=== PATIENT | female | born 1965 | race Caucasian/White ===

== ENCOUNTER 2023-12-14 23:52 | Inpatient (IN) | payer BC, SELFPAY ==
[2023-12-14 17:43] VITALS: BP 123/89
[2023-12-14 18:02] LABS: Urine Albumin Negative (Neg - Trace); Urine Bilirubin Negative (Negative); Urine Character Clear (Clear); Urine Color Yellow; Urine Glucose Negative (Negative); Urine Ketone Negative (Negative); Urine Leukocyte Negative (Negative); Urine Nitrite Negative (Negative); Urine Occult Blood Negative (Negative); Urine Urobilinogen Negative (Neg - 1+)
[2023-12-14 20:29] VITALS: BP 105/69
[2023-12-14 20:30] VITALS: BMI 27.9
--- NOTE | 2023-12-14 20:41 | ED.GENMED ---
History of Present Illness
<NARAYAN Danielson - Last Filed: 12/20/23 08:15>
General
Chief Complaint: Abnormal Lab Value
Source: patient and significant other
Exam Limitations: none
Time Seen by Provider: 12/14/23 20:38
Nursing documentation reviewed up to this point in time: agreed with
History of Present Illness
History of Present Illness:
Patient is a 58-year-old female presents to the ER for evaluation. Patient has a known history of minimally elevated LFTs though no diagnosis and also has had a history of intermittent nausea vomiting dry heaving without diagnosis after multiple GI
work she reports she had an episode of her typical nausea vomiting dry heaving on Tuesday 5 days ago however on Tuesday night 2 nights ago she was starting having auditory hallucinations. She describes hearing music playing in here in a hockey game
playing on TV. She continued to have intermittent auditory hallucinations but last night had visual hallucinations. She was in bed and ' saw a man standing there.' Her significant other was with her at that time. PT is aware that she is having
these . No prior psych history. she reports that she is chronically not a good sleeper and was prescribed Zoloft by her family doctor. In addition to the auditory /visual hallucinations patient also feels weak and unsteady and that her balance is
off.
She has had some burning with urination and did start herself on Bactrim.
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
Patient is a smoker. She drinks approximate 4times per week.
Review of Systems
<NARAYAN Danielson - Last Filed: 12/20/23 08:15>
Review of Systems
Allergies reviewed?: Yes
All Other Systems: ROS reviewed and negative except as documented in HPI and ROS
Constitutional: Reports no symptoms
EENT: Reports no symptoms
Respiratory: Reports no symptoms; Denies trouble breathing
Cardiac: Reports no symptoms
ABD/GI: Reports no symptoms; Denies abdominal pain, nausea, vomiting or diarrhea
: Reports no symptoms
Musculoskeletal: Reports no symptoms
Skin: Reports no symptoms; Denies rash
Neurological: Reports other (Balance feels off); Denies headache
Psychiatric: Reports hallucinations (Auditory and visual)
Phy Exam
<NARAYAN Danielson - Last Filed: 12/20/23 08:15>
General Physical Exam
General Presentation: no apparent distress
General age: appears stated age
General Skin: warm and dry
General Habitus: normal
General Mental: alert
General Hydration: appears well hydrated
Eye Exam
Eye Exam: PERRL, EOMI and other (No nystagmus bilaterally)
Eye Exam General: PERRL: bilateral and EOM intact: bilateral
Pupil Exam: Bilateral: round and reactive
Cardiovascular Exam
Cardiovascular Exam: regular rate/rhythm, no murmur and normal peripheral pulses
Pulmonary Exam
Pulmonary Exam: lungs clear and no respiratory distress
Neurological Exam
Neurological Exam: alert, oriented x3, no motor deficits, no sensory deficits and other (Ambulatory gait slightly off balance )
Philip Coma Scale
Eye Opening: Spontaneous
Verbal Response: Oriented
Motor Response: Obeys Commands
GCS Total Score: 15
Musculoskeletal Exam
Musculoskeletal Exam: full ROM
Skin Exam
Skin Exam: normal color and warm/dry
Psychiatric Exam
Psychiatric Exam: normal mood/affect
Course
<NARAYAN Danielson - Last Filed: 12/20/23 08:15>
Orders/Labs/Results
Orders:
Orders
12/14/23 17:54
Fentanyl, Urine Urgent
Urine Culture Reflexed from UA [Urinalysis Reflex To Culture] Urgent
Date Specimen was Collected: 12/14/23
Time Specimen was Collected: 17:49
Urine Drug Abuse Screen Urgent
Date Specimen was Collected: 12/14/23
Time Specimen was Collected: 17:49
12/14/23 18:11
CT Head W/o Iv Contrast Urgent
Comment:
Reason For Exam: confusion
12/14/23 21:06
Electrocardiogram (*1) Stat
Reason for Study: Abdominal Pain
Cardiac Monitoring- Treatment ONCE
EKG- Treatment ONCE
IV Insert/Care/Rem.- Treatment PRN
0.9% Sodium Chloride 1000 ml [Nss] 1,000 ml IV BOLUS
12/14/23 21:31
Lyme Progressive Urgent
12/14/23 23:00
Flush (0.9% Sodium Chloride) [Flush (Nss)] See Dose Instructions IV PER PROTOCOL
12/14/23 23:15
COVID-19 Antigen Urgent
Source: Nasal Swab
Abnormal Lab Results
12/14/23
17:54
U Benzodiazepines Scrn Positive H
(Negative)
Vital Signs
Initial and Last Documented VS:
Initial Vital Signs
Temp Pulse Resp BP Pulse Ox
98.3 F 92 20 123/89 99
12/14/23 17:43 12/14/23 17:43 12/14/23 17:43 12/14/23 17:43 12/14/23 17:43
Last Documented Vital Signs
Temp Pulse Resp BP Pulse Ox
98.1 F 61 16 119/73 98
12/17/23 15:49 12/17/23 15:49 12/17/23 15:49 12/17/23 15:49 12/17/23 15:49
Supervisor Accounting Clerks consulted with Physician
Supervisor Accounting Clerks consulted with physician?: Yes
Name of Physician Consulted: Matilda
<Tracie Grey MD - Last Filed: 12/14/23 22:01>
Orders/Labs/Results
Orders:
Orders
12/14/23 17:54
Fentanyl, Urine Urgent
Urine Culture Reflexed from UA [Urinalysis Reflex To Culture] Urgent
Date Specimen was Collected: 12/14/23
Time Specimen was Collected: 17:49
Urine Drug Abuse Screen Urgent
Date Specimen was Collected: 12/14/23
Time Specimen was Collected: 17:49
12/14/23 18:11
CT Head W/o Iv Contrast Urgent
Comment:
Reason For Exam: confusion
12/14/23 21:06
Electrocardiogram (*1) Stat
Reason for Study: Abdominal Pain
Cardiac Monitoring- Treatment ONCE
EKG- Treatment ONCE
IV Insert/Care/Rem.- Treatment PRN
0.9% Sodium Chloride 1000 ml [Nss] 1,000 ml IV BOLUS
12/14/23 21:31
Lyme Progressive Urgent
12/14/23 23:00
Flush (0.9% Sodium Chloride) [Flush (Nss)] See Dose Instructions IV PER PROTOCOL
12/14/23 23:15
COVID-19 Antigen Urgent
Source: Nasal Swab
Abnormal Lab Results
12/14/23
17:54
U Benzodiazepines Scrn Positive H
(Negative)
Vital Signs
Initial and Last Documented VS:
Initial Vital Signs
Temp Pulse Resp BP Pulse Ox
98.3 F 92 20 123/89 99
12/14/23 17:43 12/14/23 17:43 12/14/23 17:43 12/14/23 17:43 12/14/23 17:43
Last Documented Vital Signs
Temp Pulse Resp BP Pulse Ox
98.1 F 61 16 119/73 98
12/17/23 15:49 12/17/23 15:49 12/17/23 15:49 12/17/23 15:49 12/17/23 15:49
<NARAYAN Danielson - Last Filed: 12/20/23 08:15>
MDM/Problems Addressed
MDM/Problems Addressed:
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 She started initially with nausea vomiting over the weekend but this is not new for her she has
off-and-on episodes of this. She started with visual and hallucinations several nights ago. Since then she has had intermittent hallucinations. She is aware these are happening. In addition she is having balance issues no headache no fever no
rash. She does admit to hitting her head November 16 she is on a blood thinners. She does admit to drinking 3 times per week and has chronic elevation LFTs no diagnosis of hepatitis cirrhosis. No psych history. She had outpatient labs and a CAT scan
and was sent here to the ER. CAT scan does show small focus of increased density of the left basal ganglia possible early physiologic basal ganglia calcification possible unusual vascular malformation
On exam she is awake alert no acute distress afebrile no meningismus. Her labs were reviewed from earlier today as an outpatient white count normal LFTs elevated bun 22 creat 1.5.
Case discussed ED physician I did notify neurology neurosurgery and hospitalist possible encephalitis will require lumbar puncture and admission Lyme testing ordered .
2975:
Lumbar puncture was attempted by ED physician however unsuccessful after several times. Doxycycline considered however admitting hospitalist made aware that lumbar puncture was unsuccessful he will check with ID to see what they suggest.
Pt adm to hosp service.
Neurology as well as neurosurgery( for ct head results )
<NARAYAN Danielson - Last Filed: 12/20/23 08:15>
*Radiology
Radiology exam reviewed: radiology read reviewed (CAT scan from outpatient reviewed today)
*Pulse Oximetry
Patient hypoxic: no
*Critical Care Note
Total Time (30-74mins, 75-104mins- exclusive of procedures): Not Applicable
<NARAYAN Danielson - Last Filed: 12/20/23 08:15>
Patient Management
Discussion with other providers: Commercial Plumber (Neurology as well as neurosurgery made aware)
ED Attending Note
<NARAYAN Danielson - Last Filed: 12/20/23 08:15>
-
Portions of this chart may have been created with voice recognition software.� Occasional wrong word or��sound alike� substitutions may have occurred due to the inherent limitations of voice recognition software.
<Tracie Grey MD - Last Filed: 12/14/23 22:01>
ED Attending Note
Patient seen and examined by attending physician: Yes
I performed the substantive portion of visit, reviewed & personally made and approve the management plan that is documented in note by myself or MARIE.: Yes
ED Attending Note:
Patient appears nontoxic but slightly flushed. She has no meningismus on exam. Patient vividly describes visual hallucinations of animals turning into people. Patient also states she is hearing music that other people do not hear. She reports
these hallucinations are completely new to her. She also complains of feeling hot and then cold. Her lungs sound clear. Her abdomen is soft and nontender. I feel that we should proceed with a lumbar puncture, which patient is agreeable to, to
assess her for an encephalitis or meningitis.
Discharge Plan
Departure
Patient Disposition: Admit
Date of Disposition: 12/14/23
Time of Disposition: 23:15
Admit to: Med/Surg
Admit to doctor: rona
Presentation/result/management discussed w/ accepting MD/DO: Hospitalist
Patient with high blood pressure during this ER visit?: No
Condition: Fair
Covid-19: Not Applicable
Discharge Problem:
Acute encephalitis
Interventions
Interventions:
*Risk Screen - Suicide Last Done: 12/14/23 17:43
*General Assessment Last Done: 12/14/23 17:43
*Neglect/Abuse Screening Last Done: 12/14/23 17:43
ED- Fall Risk Assessment Last Done: 12/15/23 07:28
*ED COVID-19 Vaccine History Last Done: 12/15/23 16:23
*Nursing Disposition Last Done: 12/15/23 18:00
Discharge Date and Time
Discharge Date/Time: 12/15/23 18:02
[2023-12-14] MEDS: NSS 1000 IV (21:32)
[2023-12-14 22:10] VITALS: BP 110/82
[2023-12-14 23:33] LABS: COVID-19 Antigen Negative (Negative)
--- NOTE | 2023-12-14 23:58 | HPS.HSE ---
Family Physician
-
Family Physician: CAROLINA Finch
Chief Complaint
-
Hallucinations
History of Present Illness
Patient is a 58y F with PMH significant for hypertension and GERD who presents to ED complaining of hallucinations x 5 days. Patient states that she initially noted auditory hallucinations 5 days ago. This consisted of hearing music play or
hearing TV on. Patient went through her entire house but could find no source of the sound. This has persisted intermittently since that time. She states that she can recognize the songs that are playing and that she has heard hockey broadcasts
and other specific TV programming. In addition, patient describes multiple episodes of visual hallucinations. She has seen animals and people that are not present. She woke Tuesday evening and saw an old man standing at the foot of her bed. He
floated into the air and then disappeared. She describes seeing a dog that turned into a soldier and then disappeared.
In addition to her hallucinations, patient describes N/V symptoms that have been present for several days. She notes inability to tolerate all but very small amounts of PO intake. She describes violent bouts of retching including flushed
sensation, sweating and dizzy feeling that is alleviated after emesis.
Patient states that she feels unsteady on her feet. She has mild headache.
Patient notes that she suffered a significant fall on 11/17/23 with head injury - striking her forehead on the ground. She did not seek medical attention at that time.
She developed bilateral 'black eyes' after that injury. These symptoms have since fully resolved. She is not on anticoagulants. She does take Estelle Back and Body daily for aches and pains.
Patient states that her newest medication is sertraline - which she was placed on about 2 months ago for hot flashes / menopausal symptoms. She states that her symptoms did seem to improve with this medication.
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 She denies any recent / evident skin lesions, bites or embedded ticks.
In the ED, patient is resting comfortably. She is calm and collected and attentive. She is able to provide clear history of recent events including detailed descriptions of her various symptoms and hallucinations.
Medical History
Past Medical History
Past Medical History: Reports Other
Additional Past Medical History:
Hypertension
GERD / PUD
Endometriosis
Past Surgical History: Reports Other
Additional Past Surgical History:
Laparoscopy x 3
Tubal Ligation
Social History
Tobacco: Smoker (Current every day smoker. 05/17 ppd. Approx 30 total pack years.)
Alcohol: Daily (Patient reports approximately 3 drinks daily on average.)
Family History
Family History: Other (Mother: CAD, DM, Lupus, CHF)
Allergies / Home Medications
Allergies reflects when Allergies were last updated in [employer].
Home Medications with original date entered in [employer]
Allergy/Medication List:
Allergies
Allergy/AdvReac Type Severity Reaction Status Date / Time
No Known Allergies Allergy Unverified 12/14/23 17:43
Home Medications
aspirin-caffeine 500 mg-32.5 mg tablet (Estelle Back and Body) 1 tab PO DAILYPRN PRN back pain 12/14/23
ibuprofen 200 mg tablet 400 mg PO Q6HPRN PRN mild pain 12/14/23
lisinopril 20 mg-hydrochlorothiazide 12.5 mg tablet 1 tab PO DAILY 12/14/23
omeprazole 20 mg capsule,delayed release 20 mg PO DAILY 12/14/23
sertraline 50 mg tablet 50 mg PO HS 12/14/23
Review of Systems
-
History Source: Patient
A 12 point ROS was completed and negative except as noted: Yes
Constitutional: Reports Fatigue and Other (Sweats / Flushed); Denies Fever or Chills
EENT: Denies Sore Throat or Runny Nose
Respiratory: Denies Cough or Trouble Breathing
Cardiac: Reports Diaphoresis; Denies Chest Pain or Palpitations
Abdomen/GI: Reports Nausea, Vomiting, Diarrhea and Anorexia; Denies Abdominal Pain, Constipated, Bloody Stools or Black Stools
: Denies Dysuria, Frequency or Flank Pain
Musculoskeletal: Denies Joint Pain or Edema
Neurological: Reports Dizzy and Headache; Denies Weakness or Numbness
Psych: Reports Audio or Visual Hallucinations; Denies Depression or Anxiety
Physical Exam
Vital Signs
Vital Signs
Temp Pulse Resp BP Pulse Ox
98.3 F 69 14 110/82 97
12/14/23 17:43 12/14/23 22:15 12/14/23 22:15 12/14/23 22:10 12/14/23 21:15
Physical Exam
General: Other (58y F in no acute distress. Awake alert and conversant / attentive. Mildly flushed appearance)
HEENT: Moist mucous membranes and PERRLA
Respiratory: Clear; No Wheezes, Rales or Rhonchi
Cardiac: S1/S2 and Regular Rhythm; No Murmur
GI: Soft, Non Tender, Non Distended and Normal Bowel Sounds
Musculoskeletal: No Clubbing, No Cyanosis and No Edema
Skin: No Rash or Lesions
Neuro: AO x 3 and Other (Slightly slow and unsetady [id number] testing. Strength is intact and symmetric. Unsteady on feet / pos Romberg.)
Impression/Plan
-
A/P: Patient is a 58y F with PMH significant for hypertension and GERD who presents to ED complaining of 5 days of N/V, dizziness and hallucinations.
Audio / Visual Hallucinations
Ataxia
- Admit for further evaluation and treatment.
- Etiology remains unclear.
- ? atypical infection / encephalitis / etc.
- ? related to recent trauma / injury - though this was [address] is essentially unremarkable.
- ? related to chronic alcohol use disorder (see below).
- LP attempted in ED without success - will consult IR for LP in the AM for evaluation.
- Hold on any empiric treatment pending results of LP.
- Patient is afebrile, non-toxic appearing, etc.
- Follow for any new / worsening symptoms.
- Consults placed for Neurology and ID for additional recommendations.
- Check MRI in the AM for further evaluation.
- PT / OT evaluations.
Benign Hypertension
Renal Insufficiency
- SCr = 1.5 with no prior for comparison.
- ? RACHEL v CKD.
- Follow SCr over the next 48 hours to establish baseline.
- BP is well-controlled in the ED. Will hold lisinopril/HCT for now.
- Monitor BP and resume meds if needed.
GERD / PUD
N/V
- Patient denies any intake of deli meats, etc.
- No emesis here in the ED.
- Continue daily PPI.
- IVF support.
- Follow for any symptoms and consider GI evaluation if needed.
Hot Flashes
- Started on sertraline about 2 months ago for hot flashes.
- Given that this is her newest medication - will hold for now.
Alcohol Use Disorder
- Patient admits to at least 3 drinks daily of beer, malt liquor, hard liquor.
- Has had poor PO intake past several days (including decreased EtOH) due to GI symptoms as noted above.
- ? alcohol withdrawal syndrome though patient does not appear at all agitated and is not encephalopathic.
- Thiamine, folate, MVI replacement.
- Monitor for withdrawal symptoms and treat with BZDs if needed.
DVT Prophylaxis: SCDs
Code Status: Full
[2023-12-15] VITALS (15 sets, daily range): BP systolic 64–145; BP diastolic 57–105; PULSE 64–84; BMI 26.6
[2023-12-15] MEDS: NSS 1000 IV ×3 (01:07→18:38)
[2023-12-15 02:03] LABS: Amphetamines Negative (Negative); Barbiturates Negative (Negative); Benzodiazepines Positive (Negative); Buprenorphine Negative (Negative); Cocaine Negative (Negative); Marijuana Negative (Negative); Methadone Negative (Negative); Methamphetamines Negative (Negative); Opiates Negative (Negative); Phencyclidine Negative (Negative); Tricyclic Antidepressants Negative (Negative)
[2023-12-15 02:12] LABS: Fentanyl, Urine Negative (Negative)
[2023-12-15 06:11] LABS: Hematocrit 34.4 % (37.0-47.0); Hemoglobin 12.6 g/dL (12.0-16.0); Mean Corp Hgb Conc. 36.6 g/dL (33.0-37.0); Mean Corpuscular Hgb 36.8 pg (27.0-31.0); Mean Corpuscular Volume 100.6 fL (81.0-99.0); Mean Platelet Volume 9.5 fL (7.4-10.4); Platelet Count 179 10^3/uL (130-400); Red Blood Cell Count 3.42 10^6/uL (4.20-5.40); Red Cell Dist. Width 13.6 % (11.5-14.5); White Blood Cell Count 5.2 10^3/uL (4.8-10.8)
[2023-12-15 06:46] LABS: ALT (SGPT) 97 U/L (0-35); AST (SGOT) 131 U/L (14-36); Albumin 4.3 g/dl (3.5-5.0); Alkaline Phosphatase 93 U/L (38-126); Blood Urea Nitrogen 20 mg/dl (7-17); Calcium 9.4 mg/dl (8.4-10.2); Carbon Dioxide 22 mmol/L (22-30); Chloride 105 mmol/L (98-107); Direct Bilirubin 0.2 mg/dl (0.0-0.4); Estimated Creatinine Clearance 51 ml/min; Glucose 97 mg/dl (70-99); Potassium 3.2 mmol/L (3.5-5.1); Sodium 135 mmol/L (135-145); Total Bilirubin 0.9 mg/dl (0.2-1.3); Total Protein 6.5 g/dl (6.3-8.2); eGFR 58.61
[2023-12-15 07:15] LABS: TSH Reflex To Free T4 1.12 uIU/ml (0.47-4.68)
--- NOTE | 2023-12-15 07:20 | EDRN ---
IR called this RN and updated regarding the pt, they will take the pt at some point later today
--- NOTE | 2023-12-15 07:31 | EDRN ---
the pt was received from previous cage shift manager RN, the pt is resting in stretcher in the lowest position, side rails up x2, call quach within reach, HOB elevated, no s/s of distress, VS WNL, no c/o pain, the pt has no s/s of confusion currently
however it was reported that the pt has intermittent periods of confusion, labs sent as ordered, awaiting for the pt to go to IR, will continue to monitor the pt closely
[2023-12-15 07:48] LABS: INR 1.05; PT 13.7 Sec (11.4-14.6)
[2023-12-15] MEDS: PROTONIX 40 MG PO (07:52)
[2023-12-15] MEDS: FOLVITE 1 MG PO (07:52)
[2023-12-15] MEDS: THIAMINE INJECTION 200 MG IV (07:52)
[2023-12-15 07:57] LABS: Potassium 3.2 mmol/L (3.5-5.1)
--- NOTE | 2023-12-15 09:11 | W.PN.HOSP.TC ---
Today's Communication/Plan
-
MRI of the brain. LP
Assessment / Plan
Assessment / Plan
Physical exam:
General: Well Developed, Well Nourished and No Apparent Distress
HEENT: Normocephalic, Atraumatic and Moist Mucous Membranes
Respiratory: Clear to Auscultation; Negative Wheezes, Rales or Rhonchi
Cardiac: Regular Rhythm and S1/S2
GI: Soft, Nontender and Nondistended
Musculoskeletal: No Clubbing, No Cyanosis and No Edema
Neuro: Awake, Alert and Oriented
Psych: Calm
A/P:
A/P: Patient is a 58y F with PMH significant for hypertension and GERD who presents to ED complaining of 5 days of N/V, dizziness and hallucinations.
Audio / Visual Hallucinations
Ataxia
Etiology could be medication related or psych. Does not look infectious although reasonable to rule out concerning etiologies.
MRI of the brain done
Plan for LP
Discussed with daughter at bedside
RACHEL
Creatinine 1.5--> 1.1 with hydration
Monitor renal function avoid nephrotoxic
Hypokalemia
Replete and trend
Benign Hypertension
- BP is well-controlled in the ED. Will hold lisinopril/HCT for now.
- Monitor BP and resume meds if needed.
GERD / PUD
N/V
- Patient denies any intake of deli meats, etc.
- No emesis here in the ED.
- Continue daily PPI.
- IVF support.
- Follow for any symptoms and consider GI evaluation if needed.
Hot Flashes
- Started on sertraline about 2 months ago for hot flashes.
- Given that this is her newest medication - will hold for now.
Alcohol Use Disorder
- Patient admits to at least 3 drinks daily of beer, malt liquor, hard liquor.
- Has had poor PO intake past several days (including decreased EtOH) due to GI symptoms as noted above.
- ? alcohol withdrawal syndrome though patient does not appear at all agitated and is not encephalopathic.
- Thiamine, folate, MVI replacement.
- Monitor for withdrawal symptoms and treat with BZDs if needed.
DVT Prophylaxis: SCDs
Code Status: Full
Anticipated Discharge: 24 - 48 hours
Subjective/Interval History
-
Date of Service: December 15, 2023
Patient denies any headache or neck pain. Afebrile.
Objective Data
-
Labs:
Laboratory Results
12/15/23 12/15/23
05:30 07:27
WBC 5.2
Hgb 12.6
Hct 34.4 L
Plt Count 179
PT 13.7
INR 1.05
Sodium 135
Potassium 3.2 L D 3.2 L
Chloride 105
Carbon Dioxide 22
BUN 20 H
Creatinine 1.1 H
Glucose 97
Calcium 9.4
Total Bilirubin 0.9
AST 131 H
ALT 97 H
Alkaline Phosphatase 93
Vital Signs:
Vital Signs
Temp Pulse Resp BP Pulse Ox
98.5 F 60 12 123/74 97
12/15/23 07:28 12/15/23 07:30 12/15/23 07:30 12/15/23 07:28 12/15/23 07:30
[2023-12-15] MEDS: KCL 40 MEQ PO (10:47)
--- NOTE | 2023-12-15 13:36 | CON.NEURO4 ---
Addendum entered and electronically signed by Brooks Suarez MD 12/15/23 14:30:
Please disregard the following in this note as it was meant for another note
'Physical Exam:
1. Continue with current anticoagulation currently he is on heparin infusion and I have no objections to moving him towards apixaban when felt appropriate
2. Reassured family and the patient about the finding on the CT head noncontrast
3. Further care for the recently diagnosis of Alzheimer's dementia in the outpatient setting not going to recommend any memory aid medications to start at this time'
Original Note:
Consultation - Neurology 4
-
CONSULTING PHYSICIAN: Vini Suarez
REFERRING PHYSICIAN: Hospitalist
DICTATED BY: Vini Suarez
DATE/TIME OF REQUEST: 12/15/23
DATE/TIME OF CONSULTATION: 12/15/23
Reason for Consultation: Hallucinations
History of Present Illness:
The patient is a 58-year-old woman with a past medical history of GERD, hypertension, tobacco use, endometriosis presented to hospital because of auditory and visual hallucinations going on for about the past 4 to 5 days.
Patient has described hearing sounds that were clearly not there she could find no source of the sound in her house, sounded like music. She had also seen formed visual hallucinations like animals and people that were not disturbing and seem to be
somewhat short lasting and disappearing. Has not had anything like hallucinations in the past.
Patient has not been sleeping well for a very long time she had been taking some xupt-tdr-gdhkufi sleep aids like NyQuil but had not been taking this for about the past 4 to 5 days. Reports not sleeping much at all only a couple of hours in the
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
No unusual headaches or fevers or chills bug bites or rashes.
Does report that she has had longstanding GI illnesses with some tendency towards vomiting and diarrhea for a long time and has had upper endoscopy and colonoscopy for this with no obvious diagnoses. Has not been eating much lately.
Denies any recreational drug use and alcohol use is around 3 to 4 days a week she has around 2-3 white claw drinks.
No abnormal movements seen. Patient does have insight into her hallucinations.
For menopausal symptoms and some depression patient had been started on sertraline around 2 months ago she did not notice any obvious side effects since starting it. She relates that at a much younger age and her childhood teenager years she had
significant depression and a suicide attempt and had been treated with a number of psychiatric medications at that time. She denies any instances of hyperactive behavior not sleeping and having extreme activity and symptoms of cee in the past.
Her does feel like she seems a little bit more hyperactive in her movements and speech.
Past Medical History: Depression, hypertension, GERD, unspecific salvage determiner GI symptoms, endometriosis
Surgical History: Laparoscopy, C section, tubal ligation
Family History: No family history neurologic disorders or bipolar disorder, son with some ADHD and bipolar disorder
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
4 days per week denies any history of withdrawal or functional problems with alcohol
Review of Symptoms:
Patient denies any fever, headache, chest pain, shortness of breath, GI or symptoms.
Physical Exam:
1. Continue with current anticoagulation currently he is on heparin infusion and I have no objections to moving him towards apixaban when felt appropriate
2. Reassured family and the patient about the finding on the CT head noncontrast
3. Further care for the recently diagnosis of Alzheimer's dementia in the outpatient setting not going to recommend any memory aid medications to start at this time
Neurologic Examination:
Patient wide awake and alert, able to give very clear and detailed explanation and conversation about her presenting symptoms as well as her medical history demonstrating very good insight there is no evidence of aphasia her mood is neutral to
positive, no evidence of significant inattention and obeys complex multistep commands with no evidence of neglect. On cranial nerve assessment, pupils are 3 mm bilateral, round and reactive to light and accommodation. Visual swartz are full.
Extraocular movements are intact. Facial sensations are intact and bilaterally symmetrical, there is no facial asymmetry. Hearing is intact bilaterally to normal conversation volume. Tongue palate and uvula are midline. Sternocleidomastoid
strengths are full bilaterally. Motor strengths are 5/5 bilateral upper and lower extremities on medical research [place] scale. There is no drift or involuntary movement noted. Deep tendon reflexes are 2+ bilateral upper and lower extremities and
Babinski is absent bilaterally. Normal tone no rigidity or spasticity. No pathologic hyperreflexia, no clonus. Normal light touch. There was no extinction noted on double simultaneous stimulation. Coordination is intact by finger to nose
bilaterally.
Neuro Imaging: MRi brain with and without contrast no findings of infarct, edema, neoplasm, no findings supportive of encephalitis
Impressions
Rather interesting case, patient with quite intact insight but having visual and auditory hallucinations and does not seem to be psychotic at all. She has had significant sleep deprivation along with some uses ohgo-lzv-havyafj sleep medications
that could be playing a role and seems to be working almost to the point of exhaustion recently. Seems to have had some longstanding GI illnesses that would raise the possibility of some degree of vitamin deficiency but she does not have any of the
classic signs of Wernicke's encephalopathy. No strong suggestion on vital signs lab work or history of a meningitis but encephalitis would be in the differential. Seems a bit hyperactive but not clear that she has hypomania or not, seems unlikely
but there is the possibility that the starting of sertraline 2 months ago could have thrown her into a mild hypomanic state.
Recommendations:
1. Check Vitamin B12, Ammonia, antibodies for Vi encephalopathy
2. Check lumbar puncture
3. Change Thiamine to high dose 500 mg q8hr IV for [address] on Gabapentin 400 mg qhs for adequate sleep
5. Psychiatry consultation for input on if is felt an aspect of hypomania here and any changes to Sertraline
Discussed patient care with: Patient and her family
--- NOTE | 2023-12-15 14:24 | CON.MD ---
Consultation - Medical
-
patient seen chart reviewed. spoke with nursing. family at bedside. the patient is a 58 year old woman who comes to w c.o auditory and visual hallucinations . about two months ago she was started on zoloft by pcp increased to 50 mg daily for
some anxiety and dysphoria. she was having night sweats too but she has had them for years menopause is long past as periods stopped at age 46. she noted gradually that she could not sleep. at this point not sleeping at all. her appetite has been
down for the past several days. her thoughts are racing. she felt nauseated on and rx started for uti (bactrim). on tuesday started experiencing visual and auditory hallucinations. family notes her normally quiet retiring personality has
morphed into a very talkative person with pressured speech increased energy and much decreased need for sleep. she is not suicidal. the hallucinations are NOT command type. she hears radio announcers tv shows etc. she does see people who are not
there and things which are not there....eg a fly . she told me she drinks six beers weekly but to others here she suggested more etoh use on the order of three drinks daily and notably lft's are increased and rbc's show macrocytosis
past psych hx as a teen hx of cutting herself she did not say tried to kill herself but rather cut herself. she was hosp 'thirty days' at [place]. she took antidepressants and notably at some point prescribed zyprexa thorazine haldol at some
point. no psych meds for some years.
medical hx patient w hx gi symptoms has had colonoscopy and endoscopy without dx. gerd fibromyalgia rx w lyrica at some point. bun 20 cr 1.1 K 3.2 hgb 12.6 transaminitis mri and cat no acute findings ecg nl qtc bradycardia bp nl she
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
fh mother w depression fh etoh
social hx resides w second and one d. has t hree kids by first marriage eleven grands all together. 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 patient was stressed by work in recent weeks.
[place] born and raised.
mse alert ox3 cooperative and pleasant. speech pressured and a bit loud. thought process generally goal oriented mood is a bit expansive affect labile auditory and visual hallucinations no si no hi aver intelligence insight judg okay
dx ?? cee induced by zoloft in a patient with hx of some psych illness r/o etoh use disorder which could contribute to mood instability r/o other medical as per dr leach
plan neuro workup as per dr leach. my suspicion is that this is secondary to zoloft which should be dc'ed. . this type of rxn can occur with or without bipolar underlying. need to monitor for etoh wd check folic acid would give her a dose of
seroquel now 25 mg and 50 mg q hs . sleep may help with resumption of normal mood. psych will follow
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
--- NOTE | 2023-12-15 15:30 | W.PN.UPDATE ---
Update Note
Progress Note Update
- LP complete. Mildly bloody tap. Level L4/5.
- Pt tolerated well.
[2023-12-15 16:01] LABS: Lyme Antibody Screen, EIA Negative (Negative)
[2023-12-15 16:40] LABS: CSF Clarity Turbid; CSF Color Red; CSF Tube # 1; Red Cell Count/CSF 7000 mm^3
--- NOTE | 2023-12-15 16:55 | CON.ID ---
Consultation
-
Date/Time Consultation Requested: 12/15/2023 01:01
Date/Time Consultation Performed: 12/14/2042 1640
Requesting Provider: Dr. Cole
Performing Provider: Dr. Summers
Reason for Consultation: Hallucinations
Chief Complaint / Past History
History of Present Illness
Corrie Hill is a 58-year-old female being evaluated at the request of Dr. Cole regarding hallucinations. History is obtained from chart review, along with patient interview.
The patient reports that she has had several months of intermittent dry heaves, with the last bowel last week which persisted for approximately 3 days. Right approximately 5 days ago she began to have reported auditory hallucinations, hearing
people talk when they were not there. A day or so later she then proceeded to develop some visual hallucinations, seeing flies and other bugs when none were present. She ultimately was brought to the hospital for further evaluation.. She also
noted to the ER that she was feeling weak and somewhat unsteady and that her balance is off.
She reports that since admission the visualizations have eased off, but she does report seeing floating in the room which was not there today. She is currently status post lumbar puncture.
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 She notes no prior occurrences of similar symptomatology.
Past History
Additional Past Medical History:
HTN
GERD
Endometriosis
Additional Past Surgical History:
Patient
Allergy History:
No Known Allergies Allergy (Unverified 12/14/23 17:43)
Medications Reviewed: Yes
Current Antibiotics:
none
Social History
Tobacco: Smoker (1/2 ppd)
Alcohol: Occasional
Drug: None
Employment: Employed
Family History
Family History: Not Pertinent
Review of Systems
Vital Signs
Temp Pulse Resp BP Pulse Ox
98.3 F 58 16 121/65 98
12/15/23 14:33 12/15/23 15:28 12/15/23 15:28 12/15/23 15:28 12/15/23 14:33
Physical Exam
Physical Exam
Constitutional: No Acute Distress, Comfortable and Non-toxic
Head: Normocephalic
Eyes: No Conjunctival Hemorrhage and Sclera Anicteric
Oral: No Thrush and No Ulcers
Cardiovascular: Regular Rate and S1/S2; Negative S3/S4 or Murmur
Pulmonary: Clear; Negative Wheezes, Rales or Rhonchi
Gastrointestinal: Soft, Non Tender, Non Distended, Normal Bowel Sounds, No Rebound and No Guarding
Extremities: Negative Edema, Cyanosis or Erythema
Neurological: Awake, Alert and Oriented; Negative Meningeal Signs
Psychological: Calm
Lab / Diagnostic Study Results
12/15/23 05:30
12/15/23 07:27
PT 13.7 Sec (11.4-14.6) 12/15/23 07:27
INR 1.05 12/15/23 07:27
Microbiology Results
Micro:
12/15/23 15:15 Fungal Culture - Preliminary
Csf Culture in progress.
Positive cultures are reported as soon as detected.
Final report to follow in four to five weeks.
12/15/23 15:15 CSF Culture - Pending
Csf Gram Stain - Final
12/15/23 15:15 Meningitis/Encephalitis Panel (PCR) - Pending
Csf
Imaging:
12/15/2023 MRI brain: No abnormal parenchymal signal intensity is identified. The ventricles and sulci are normal in size and configuration. Mild relatively symmetric susceptibility in the bilateral basal ganglia most compatible with mineralization
in correlation with the prior CT. No mass effect, midline shift, or extra axial collection. No abnormal parenchymal or meningeal enhancement. No abnormal signal intensity on diffusion-weighted images.
Assessment / Plan
Reported hallucinations; improved
Generalized weakness
HTN
GERD
Endometriosis
Recommendations:
At this time, clinical presentation is not consistent with encephalitis or meningitis.
Will await further results from LP, but no indication at present to initiate antibiotic therapy.
Continue with supportive care. Patient currently followed also by neurology and psychiatry
[2023-12-15] MEDS: THIAMINE INJECTION 255 MG IV ×2 (16:57→23:05)
[2023-12-15 17:00] LABS: Spinal Fluid Granulocytes 51 %
[2023-12-15 17:01] LABS: CSF Tube # 4; Spinal Fluid Lymphocytes 40 %; Spinal Fluid Macrophages 9 %; White Cell Count/CSF 8 mm^3 (0-5)
[2023-12-15] MEDS: SEROQUEL 25 MG PO (17:01)
[2023-12-15 17:02] LABS: CSF Tube # Clarity Hazy; White Blood Cell Count/CSF 2 mm^3 (0-5)
[2023-12-15 17:27] LABS: Folate 4.5 ng/ml (2.76-20); Vitamin B12 454 pg/ml (239-931)
[2023-12-15 17:34] LABS: CSF Color Other; Red Cell Count/CSF 2000 mm^3
--- NOTE | 2023-12-15 18:00 | PTCARENOTE ---
12/14- Patient transferred and oriented to unit without issue. AAOX3, pleasantly hyperactive but redirectable, cooperative. Skin CDI. Telemetry #21, currently Sinus Tachycardia with PB=[id number]. Patient denies any current needs or requests.
[2023-12-15 18:03] LABS: Spinal Fluid Glucose 63 mg/dl (40-70); Spinal Fluid Protein 72 mg/dl (12-60)
[2023-12-15] MEDS: SEROQUEL 50 MG PO (21:52)
[2023-12-16] MEDS: NSS 1000 IV (02:40)
[2023-12-16 03:20] VITALS: BP 126/72
[2023-12-16 07:00] VITALS: BP 162/70
[2023-12-16] MEDS: PROTONIX 40 MG PO (08:05)
[2023-12-16] MEDS: FOLVITE 1 MG PO (08:05)
[2023-12-16] MEDS: THIAMINE INJECTION 255 MG IV ×3 (08:05→23:28)
--- NOTE | 2023-12-16 08:21 | W.PN.NEURO.1 ---
Addendum entered and electronically signed by Brooks Suarez MD 12/16/23 11:39:
I saw and evaluated the patient agree with the findings with following comments:
58 year old woman with mood disorder, hypertension, GERD, tobacco use presenting with auditory and visual hallucinations, mild hypomania, started Sertraline 2 months ago for depression and menopausal symptoms. 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 Not sleeping much for past several days and taking some over the counter medicines like Nyquil for sleep.
Neurologic examination unchanged: Has brief visual hallucinations, good insight, calm and cooperative, able to have clear full conversation, no aphasia, cranial nerves and motor function unremarkable.
CSF no significant abnormalities
MRI brain with and without contrast no significant abnormalities
Assessment: Suspicion is greatest for Sertraline inducing cee in a patient with previous mood disorder. Testing here not supportive of encephalitis or meningitis. Not showing vital signs or clinical signs on exam of drug or alcohol withdrawal
but does have frequent alcohol use should be kept in mind.
Recommendations
-Daily multivitamin
-Don't pursue Gabapentin rather agree with use of Seroquel
-Labwork checked for other contributory causes
-Anticipate will need seroquel moving forward
-Can switch to PO thiamine on discharge would continue on IV thiamine until discharge
Original Note:
Today's Communication / Plan
-
.
Neuro Assessment/Plan
Assessment
This is a 58-year-old female with a PMH of HTN, GERD, endometriosis, and tobacco use who presented to on 12/15/23 with report of auditory and visual hallucinations starting about 5 days prior to arrival. She also endorses recent poor sleep,
productive cough requiring NyQuil/DayQuil, nausea/vomiting/poor oral intake, and newly starting sertraline 50mg about 2 months ago.
-MRI Brain 12/15/23: No acute intracranial abnormality within the limitations of motion artifact.
-CSF 12/15/23: WBC 2, protein 72, glucose 63.
I. Symptoms likely a manic reaction in the setting of recent initiation/titration of sertraline; combined with sleep deprivation, NyQuil usage, vomiting, poor oral intake.
II. Longstanding GI illnesses that would raise the possibility of some degree of vitamin deficiency but she does not have any of the classic signs of Wernicke's encephalopathy.
III. CSF not supportive of an infectious process.
Plan
-Permanent discontinuation of sertraline.
-Continue Seroquel HS per Psychiatry recommendation.
-Do not see a role for further neurological imaging.
-Okay to change thiamine to 100mg PO daily when cleared for discharge.
-Neurology will follow as-needed, please contact our service with any questions/concerns.
Subjective/Objective
Subjective Data
Date of Service: December 16, 2023
No acute events overnight. Patient reports right ear fullness, ongoing cough, and right thigh aching. She reports thinking people are talking to her in her sleep, but when she is awake she is not having any hallucinations. She denies any headache,
dizziness, vision changes, speech/swallow difficulty, focal numbness/weakness, nausea, chest pain, palpitations, and shortness of breath.
Objective Data
Vital Signs
Temp Pulse Resp BP Pulse Ox
97.3 F 66 16 126/72 98
12/16/23 03:20 12/16/23 03:20 12/16/23 03:20 12/16/23 03:20 12/16/23 03:20
PT 13.7 Sec (11.4-14.6) 12/15/23 07:27
INR 1.05 12/15/23 07:27
Sodium 135 mmol/L (135-145) 12/15/23 05:30
Potassium 3.2 mmol/L (3.5-5.1) L 12/15/23 07:27
BUN 20 mg/dl (7-17) H 12/15/23 05:30
Glucose 97 mg/dl (70-99) 12/15/23 05:30
Calcium 9.4 mg/dl (8.4-10.2) 12/15/23 05:30
Vitamin B12 Cancelled 12/15/23 13:45
Ur Buprenorphine Cancelled 12/15/23 01:01
Patient Allergies
No Known Allergies Allergy (Unverified 12/14/23 17:43)
Review of Systems
-
History Source: Patient
EENT: Negative Blurry Vision, Decreased Vision or Swallowing Difficulty
Respiratory: Cough; Negative Trouble Breathing
Cardiac: Negative Chest Pain or Palpitations
Abdomen/GI: Negative Nausea
Musculoskeletal: Myalgias (R thigh)
Neuro: Negative Dizzy, Headache, Weakness, Numbness, Ataxia, Tremors or Speech Problem
Physical Exam
-
General: Well Developed, Well Nourished and No Apparent Distress
Eyes: No Ptosis and PERRLA
HEENT: Normocephalic and Atraumatic
Neck: Full Range of Motion
Respiratory: No Dyspnea
GI: Non-distended
Skin: Warm, Dry and Other (ecchymosis b/l knees)
Extremities: No Clubbing, No Cyanosis and No Edema
Psych: Unremarkable
Extended Neurological Exam
Mood & Affect: Mood Unremarkable and Affect Unremarkable
Attention Span & Concentration: Awake, Alert and Interactive
Memory: Unremarkable (AAOx3) and Able to Recall
Tremor: Hand Tremor Absent and Head Tremor Absent
Involuntary Movement: None
Speech: Quality Unremarkable, Quantity Unremarkable and Rate of Production Unremarkable
Cranial Nerve II: Left Eye: Pupillary Reactivity Unremarkable, Pupillary Size Unremarkable and Visual Swan Intact
Cranial Nerve II: Right Eye: Pupillary Reactivity Unremarkable, Pupillary Size Unremarkable and Visual Swan Intact
Cranial Nerves III, IV, : Extraocular Movement: Extraocular Movement Full in all Directions
Cranial Nerve V: Facial Sensation: Intact to Light Touch
Cranial Nerve VII: Facial Symmetry: Normal Facial Symmetry
Cranial Nerve VIII: Hearing: Unremarkable Hearing to Normal Conversational Volume
Cranial Nerves IX, X: Palate Movement: Palate Elevation Symmetric
Cranial Nerve XI: Shoulder Shrug: Unremarkable
Cranial Nerve XII: Tongue Protusion: Midline
Muscle Strength, Overall: Full Throughout
Muscle Bulk & Tone: Bulk Unremarkable and Tone Unremarkable
Pronator Drift: No Drift in Upper Extremities and No Drift in Lower Extremities
Deep Tendon Reflexes: Unremarkable Throughout
Touch Sensation: Double Simultaneous Stimulation Unremarkable
Coordination: Gedbwy-kvak-tjrocw Testing Unremarkable
Babinski Sign: Absent Bilaterally
Data Reviewed
-
CT Head: Report Reviewed and Image Reviewed
MRI Head: Report Reviewed and Image Reviewed
Medical Test Reports: Report Reviewed (CSF)
Labs: Report Reviewed
Reviewed with: Physician and Patient
[2023-12-16 08:43] LABS: Ammonia 13 umol/L (9-30)
[2023-12-16 08:47] LABS: % Basophils 0.2 % (0-2); % Eosinophils 2.8 % (0-6); % Immature Granulocytes 0.2 % (0-0.5); % Lymphocytes 41.3 % (20.5-51.1); % Monocytes 11.7 % (1.7-9.3); % Neutrophils 43.8 % (42.2-75.2); Absolute Eosinophils 0.1 10^3/uL (0-0.7); Absolute Lymphocytes 2.1 10^3/uL (1.2-3.4); Absolute Monocytes 0.6 10^3/uL (0.1-0.6); Absolute Neutrophils 2.2 10^3/uL (1.4-6.5); Hematocrit 32.1 % (37.0-47.0); Hemoglobin 11.3 g/dL (12.0-16.0); Mean Corp Hgb Conc. 35.2 g/dL (33.0-37.0); Mean Corpuscular Hgb 37.9 pg (27.0-31.0); Mean Corpuscular Volume 107.7 fL (81.0-99.0); Mean Platelet Volume 9.6 fL (7.4-10.4); Nucleated Red Blood Cells % 0 %; Platelet Count 142 10^3/uL (130-400); Red Blood Cell Count 2.98 10^6/uL (4.20-5.40); Red Cell Dist. Width 13.6 % (11.5-14.5); White Blood Cell Count 5.1 10^3/uL (4.8-10.8)
[2023-12-16 08:55] LABS: ALT (SGPT) 81 U/L (0-35); AST (SGOT) 100 U/L (14-36); Albumin 3.7 g/dl (3.5-5.0); Alkaline Phosphatase 75 U/L (38-126); Blood Urea Nitrogen 17 mg/dl (7-17); Carbon Dioxide 22 mmol/L (22-30); Chloride 115 mmol/L (98-107); Estimated Creatinine Clearance 57 ml/min; Glucose 106 mg/dl (70-99); Potassium 4.8 mmol/L (3.5-5.1); Sodium 140 mmol/L (135-145); Total Bilirubin 0.4 mg/dl (0.2-1.3); Total Protein 5.9 g/dl (6.3-8.2); eGFR > 60.00
--- NOTE | 2023-12-16 09:58 | W.PN.HOSP.TC ---
Today's Communication/Plan
-
Continue Seroquel.
Assessment / Plan
Assessment / Plan
Physical exam:
General: Well Developed, Well Nourished and No Apparent Distress
HEENT: Normocephalic, Atraumatic and Moist Mucous Membranes
Respiratory: Clear to Auscultation; Negative Wheezes, Rales or Rhonchi
Cardiac: Regular Rhythm and S1/S2
GI: Soft, Nontender and Nondistended
Musculoskeletal: No Clubbing, No Cyanosis and No Edema
Neuro: Awake, Alert and Oriented, no neuro-deficits
Psych: Calm, less manic
A/P:
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
Continue holding sertraline
MRI of the brain done and no acute intracranial abnormalities.
LP no evidence of infection
Discussed with daughter at bedside yesterday
Discussed with at bedside today
Discussed with neurology in person today
Psychiatry started her on Seroquel
RACHEL
Creatinine 1.5--> 0.9 with hydration
Monitor renal function avoid nephrotoxic
Hypokalemia
Resolved
Benign Hypertension
Now that renal function is better we will resume lisinopril/HCT.
GERD / PUD
N/V
Resolved
Alcohol Use Disorder
Alcohol withdrawal protocol but no evidence of withdrawal at the moment
Thiamine folate and multivitamin
DVT Prophylaxis: SCDs
Code Status: Full
Anticipated Discharge: 24 - 48 hours
Subjective/Interval History
-
Date of Service: December 16, 2023
Patient still with manic symptoms but much less. Less hallucinations. Afebrile
Objective Data
-
Labs:
Laboratory Results
12/16/23
08:19
WBC 5.1
Hgb 11.3 L
Hct 32.1 L
Plt Count 142 D
Sodium 140
Potassium 4.8 D
Chloride 115 H
Carbon Dioxide 22
BUN 17
Creatinine 0.9
Glucose 106 H
Calcium 9.0
Total Bilirubin 0.4
AST 100 H
ALT 81 H
Alkaline Phosphatase 75
Vital Signs:
Vital Signs
Temp Pulse Resp BP Pulse Ox
98.0 F 65 18 162/70 97
12/16/23 07:00 12/16/23 07:00 12/16/23 07:00 12/16/23 07:00 12/16/23 07:00
I&O
12/15/23 12/16/23 12/17/23
06:59 06:59 06:59
Intake Total 1665 / 1665
Balance 1665 / 1665
[2023-12-16] MEDS: ORETIC 12.5 MG PO (11:00)
[2023-12-16] MEDS: ZESTRIL 20 MG PO (11:00)
[2023-12-16 11:42] VITALS: BP 151/79
--- NOTE | 2023-12-16 12:10 | CM ---
Chart reviewed and bilingual patient support caseworker met with patient and spouse, patient reports that she spoke with [facility] this morning and they provided her with resources and treatment options.
Plan; Home when stable and follow up with [facility].
--- NOTE | 2023-12-16 14:48 | W.PN.UPDATE ---
Update Note
Progress Note Update
patient seen chart reviewed. present at bedside. the patient remains hypomanic. she did not sleep despite seroquel and continues to be pressured in speech w racing thoughts. she continues w hallucinations. she did have LP which has not
yielded any diagnostic possibilities. mri and cat brain without acute findings. i spoke to neuro they do not feel neuro cause for this event and Infectious disease does not feel this is infectious in etiology. this was likely precipitated by
zoloft superimposed on perhaps on nyquil usage poor oral intake ...hard to say if sleep deprivation is a cause or effect. patient told me more about her family. .her three kids were in therapy during their childhood one of her sons was very
agitated and took zyprexa ...diagnosed w adhd and behavioral disorder. his son is the same way. there may be some bipolar diathesis in this family. will increase seroquel to 100 mg q hs and 25 mg q am and add melatonin 10 mg q hs. psych will see
patient tomorrow. hard to say what etoh contributed to this episode but I am certain it was nothing good. she should NOT drink or use any type of otc meds containing etoh if possible. psych will see her over weekend. i do not at this point feel she
will [facility] but a psychiatrist should see her for followup and i gave the name of three local mental health out patient practices that i think will accept his insurance [facility]
guidance.
[2023-12-16 15:00] VITALS: BP 135/81
[2023-12-16] MEDS: SEROQUEL 25 MG PO (15:33)
[2023-12-16 19:00] VITALS: BP 135/75; BP 136/76; BP 141/74; PULSE 63; PULSE 64; PULSE 73
[2023-12-16] MEDS: MELATONIN 10 MG PO (21:01)
[2023-12-16] MEDS: SEROQUEL 100 MG PO (21:01)
[2023-12-16 23:03] VITALS: BP 143/93
[2023-12-17 03:30] VITALS: BP 139/75
[2023-12-17 07:08] VITALS: BP 129/78
[2023-12-17 07:14] VITALS: BP 129/78; BP 152/88; BP 166/91; PULSE 56; PULSE 62; PULSE 65
[2023-12-17 07:28] LABS: Blood Urea Nitrogen 18 mg/dl (7-17); Calcium 9.7 mg/dl (8.4-10.2); Carbon Dioxide 23 mmol/L (22-30); Chloride 114 mmol/L (98-107); Estimated Creatinine Clearance 64 ml/min; Glucose 109 mg/dl (70-99); Potassium 4.5 mmol/L (3.5-5.1); Sodium 142 mmol/L (135-145); eGFR > 60.00
[2023-12-17] MEDS: THIAMINE INJECTION 255 MG IV (08:10)
[2023-12-17] MEDS: ZESTRIL 20 MG PO (08:11)
[2023-12-17] MEDS: SEROQUEL 25 MG PO (08:11)
[2023-12-17] MEDS: PROTONIX 40 MG PO (08:11)
[2023-12-17] MEDS: FOLVITE 1 MG PO (08:11)
[2023-12-17] MEDS: ORETIC 12.5 MG PO (08:12)
--- NOTE | 2023-12-17 08:55 | W.PN.HOSP.TC ---
Today's Communication/Plan
-
Continue current management
Assessment / Plan
Assessment / Plan
Physical exam:
General: Well Developed, Well Nourished and No Apparent Distress
HEENT: Normocephalic, Atraumatic and Moist Mucous Membranes
Respiratory: Clear to Auscultation; Negative Wheezes, Rales or Rhonchi
Cardiac: Regular Rhythm and S1/S2
GI: Soft, Nontender and Nondistended
Musculoskeletal: No Clubbing, No Cyanosis and No Edema
Neuro: Awake, Alert and Oriented, no neuro-deficits
Psych: Calm, less manic
A/P:
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
Continue holding sertraline
MRI of the brain done and no acute intracranial abnormalities.
LP no evidence of infection
Discussed with daughter at bedside yesterday
Discussed with at bedside today
Discussed with neurology in person today
Psychiatry started her on Seroquel--> she is on the 100 mg nightly and 25 mg daily.
Discharge planning once cleared by psychiatry
RACHEL
Creatinine 1.5--> 0.9 with hydration
Monitor renal function avoid nephrotoxic
Hypokalemia
Resolved
Benign Hypertension
Now that renal function is better we will resume lisinopril/HCT.
GERD / PUD
N/V
Resolved
Alcohol Use Disorder
Alcohol withdrawal protocol but no evidence of withdrawal at the moment so stop protocol
Thiamine folate and multivitamin
DVT Prophylaxis: SCDs
Code Status: Full
Anticipated Discharge: 24 - 48 hours
Subjective/Interval History
-
Date of Service: December 17, 2023
Patient seen and examined. She said that she slept some last night.
Objective Data
-
Labs:
Laboratory Results
12/17/23
06:47
Sodium 142
Potassium 4.5
Chloride 114 H
Carbon Dioxide 23
BUN 18 H
Creatinine 0.8
Glucose 109 H
Calcium 9.7
Vital Signs:
Vital Signs
Temp Pulse Resp BP Pulse Ox
97.8 F 56 16 129/78 100
12/17/23 07:08 12/17/23 07:08 12/17/23 07:08 12/17/23 07:08 12/17/23 07:08
I&O
12/16/23 12/17/23 12/18/23
06:59 06:59 06:59
Intake Total 1665 / 1665 2160 / 2160
Balance 1665 / 1665 2160 / 2160
[2023-12-17 11:10] VITALS: BP 140/83
--- NOTE | 2023-12-17 11:36 | W.PN.ID1 ---
Date of Service
Date of Service: December 17, 2023
Today's Communication
Sign off.
Assessment / Plan
Reported hallucinations; resolved
Generalized weakness
HTN
GERD
Endometriosis
Recommendations:
At this time, clinical presentation is not consistent with encephalitis or meningitis.
No pleocytosis noted on LP. Meningitis panel negative.
Hallucinations have resolved.
Little more to add from a Infectious Diseases standpoint.
Will see again at your request.
Chief Complaint
-: Other (Hallucinations)
Subjective / Review of Systems
Patient seen and examined. Reports no further episodes of hallucinations.
Review of Systems: No Fever and No Chills
Vital Signs / Physical Exam
Vital Signs
Vital Signs
Temp Pulse Resp BP Pulse Ox
97.8 F 56 16 129/78 99
12/17/23 07:08 12/17/23 07:08 12/17/23 07:08 12/17/23 07:08 12/17/23 08:15
Physical Exam
Constitutional: No Acute Distress, Comfortable and Non-toxic
Eyes: Sclera Anicteric
Neurological: Awake, Alert and Oriented; Negative Meningeal Signs
Psychological: Calm
Objective Data
Lab Data
Lab Results
12/16/23 08:19
12/17/23 06:47
PT 13.7 Sec (11.4-14.6) 12/15/23 07:27
INR 1.05 12/15/23 07:27
Estimated Creat Clear 64 ml/min 12/17/23 06:47
Total Bilirubin 0.4 mg/dl (0.2-1.3) 12/16/23 08:19
AST 100 U/L (14-36) H 12/16/23 08:19
ALT 81 U/L (0-35) H 12/16/23 08:19
Alkaline Phosphatase 75 U/L (38-126) 12/16/23 08:19
Most recent labs reviewed.
Micro Results:
12/15/23 15:15 CSF Culture - Preliminary
Csf No Growth After 48 Hours
Gram Stain - Final
12/15/23 15:15 Fungal Culture - Preliminary
Csf Culture in progress.
Positive cultures are reported as soon as detected.
Final report to follow in four to five weeks.
12/15/23 15:15 Meningitis/Encephalitis Panel (PCR) - Final
Csf
Imaging:
12/15/2023 MRI brain: No abnormal parenchymal signal intensity is identified. The ventricles and sulci are normal in size and configuration. Mild relatively symmetric susceptibility in the bilateral basal ganglia most compatible with mineralization
in correlation with the prior CT. No mass effect, midline shift, or extra axial collection. No abnormal parenchymal or meningeal enhancement. No abnormal signal intensity on diffusion-weighted images.
--- NOTE | 2023-12-17 15:42 | CM ---
Patient is for possible discharge to home today no needs.
Plan; Home no needs.
[2023-12-17] MEDS: THIAMINE INJECTION IV (15:45)
[2023-12-17 15:49] VITALS: BP 119/73
--- NOTE | 2023-12-17 16:23 | W.PN.UPDATE ---
Update Note
Progress Note Update
Pt seen & evaluated at bedside, chart reviewed & discussed with nursing. Pt is pleasant and cooperative, although quite talkative it is not inappropriately so and thought process is linear & logical, goal directed. Fully oriented. No evidence of
si/hi/avh/delusions. Reports feeling much better and was able to get a good nights sleep with the current dose of seroquel. Mood is good and affect is appropriate. Plans to follow up outpatient with the psychiatric programs she was provided
information about. is ready to come pick her up and she is eager to get back to her and animals.
Continue seroquel 25mg AM/ 100mg HS- will follow up outpatient regarding longer term management
--- NOTE | 2023-12-17 16:42 | W.DCSUMMARY ---
Discharge Summary
Discharge Data
Date of Admission: 12/14/23
Date of Discharge: 12/17/23
-
Pending Results: No
Hospital Course
Patient 58 years old female with history hypertension, smoker, GERD, endometriosis presented to the hospital with auditory and visual hallucinations and mental status changes. Neurology, ID, and psychiatry consulted. Infectious workup did not
reveal any infectious cause. Interestingly, she had been increased doses of Zoloft prior to this presentation and also had been taking some NyQuil so it was felt that some of the medications were precipitating or at least contributing to some of
her symptoms. She was diagnosed with a manic episode. Zoloft was discontinued and she was started on Seroquel. Patient also had some metabolic derangements with acute kidney injury and she received IV fluids and supportive care. Patient improved
substantially. She will need mental health outpatient follow-up. Psychiatry cleared her for discharge.
Discharge duration: 35-minutes
Discharge Plan
-
Patient Disposition: Home (Routine Discharge)
Discharge Diagnosis/Procedures: Manic episode. Acute kidney injury. Hypokalemia. Hypertension. Alcohol use disorder.
Condition: Good
Diet: Low Cholesterol
Activity: As tolerated
Blood Work: Please PCP to order CBC, CMP within 1 week
Referrals:
Taylor Lloyd PA [Family Provider] - in less than 1 week
Peyton Rivera MD [Active] - in two to four weeks
Prescriptions:
New
thiamine HCl (vitamin B1) 100 mg Tablet
100 mg PO BID Qty: 20 0RF
quetiapine 25 mg Tablet
25 mg PO DAILY 30 Days Qty: 30 0RF
quetiapine 100 mg Tablet
100 mg PO HS 30 Days Qty: 30 0RF
Continued
lisinopril-hydrochlorothiazide 20-12.5 mg tablet
1 tab PO DAILY
omeprazole 20 mg Capsule,Delayed Release(Dr/Ec)
20 mg PO DAILY
Estelle Back and Body 500-32.5 mg Tablet
1 tab PO DAILYPRN PRN (Reason: back pain)
Discontinued
ibuprofen 200 mg Tablet
400 mg PO Q6HPRN PRN (Reason: mild pain)
sertraline 50 mg tablet
50 mg PO HS
Discharge Orders:
Discharge Patient (As Directed); Ordered 12/17/23
Ordered By: Maik Payton
Discharge Date and Time
Discharge Date/Time: 12/17/23 18:53
Print Language: GUYANESE
[2023-12-19 00:28] LABS: Thyroid Peroxidase Ab (TPO) 0.7 IU/mL (0.0-9.0)
[2023-12-19 00:51] LABS: Thyroglobulin 43.4 ng/mL (1.3-31.8); Thyroglobulin Antibodies <0.9 IU/mL (0.0-4.0)
[2023-12-19 13:32] LABS: C.neoformans Antigen Negative (Negative)
[2023-12-20 10:40] LABS: Lyme Disease DNA by PCR Not Detected; Lyme Source CSF
[2023-12-20 11:37] LABS: CSF VDRL (T. pallidum) Non Reactive (Non Reactive)
== END 2023-12-17 18:53 | disposition home or self-care (01) | DRG 880 ==
LOC: 4 WEST ACU 23:52
PROVIDERS: Emergency Medicine; Nurse Practitioner; Radiology Diagnostic Radiology; ADMITTING PHYSICIAN Hospitalist; ATTENDING PHYSICIAN Hospitalist; CONSULT PHYSICIAN Psychiatry & Neurology Psychiatry; EMERGENCY PHYSICIAN Emergency Medicine; FAMILY PHYSICIAN Physician Assistant; OTHER PHYSICIAN Internal Medicine Infectious Disease; OTHER PHYSICIAN Student in an Organized Health Care Education/Training Program
PROC: B01B1ZZ Fluoroscopy of Spinal Cord using Low Osmolar Contrast (ICD-10-PCS; 2023-12-15)
PROC: 009U3ZX Drainage of Spinal Canal, Percutaneous Approach, Diagnostic (ICD-10-PCS; 2023-12-15)
DX: R44.0 Auditory hallucinations (principal); F30.9 Manic episode, unspecified; N17.9 Acute kidney failure, unspecified; F10.239 Alcohol dependence with withdrawal, unspecified; E87.6 Hypokalemia; N18.9 Chronic kidney disease, unspecified; I12.9 Hypertensive chronic kidney disease with stage 1 through stage 4 chronic kidney disease, or unspecified chronic kidney disease; K21.9 Gastro-esophageal reflux disease without esophagitis; K27.9 Peptic ulcer, site unspecified, unspecified as acute or chronic, without hemorrhage or perforation; F17.210 Nicotine dependence, cigarettes, uncomplicated; Z79.82 Long term (current) use of aspirin; R44.1 Visual hallucinations; Z11.52 Encounter for screening for COVID-19
CPT/HCPCS: 36415; 62328; 70450; 70553; 80048; 80053; 80306; 80307; 81003; 82140; 82248; 82607; 82728; 82746; 82945; 84132; 84157; 84432; 84443; 85025; 85027; 85610; 86255; 86376; 86592; 86618; 86800; 87015; 87070; 87102; 87205; 87327; 87476; 87483; 87811; 88108; 89051; 93005; 96360; 99285; 99406; A9575

== ENCOUNTER 2024-02-27 20:40 | Inpatient (IN) | payer BC, SELFPAY ==
[2024-02-27] VITALS (26 sets, daily range): BP systolic 81–130; BP diastolic 43–81
[2024-02-27 18:16] LABS: % Basophils 0.2 % (0-2); % Eosinophils 1.4 % (0-6); % Lymphocytes 40.4 % (20.5-51.1); % Monocytes 9.4 % (1.7-9.3); % Neutrophils 47.6 % (42.2-75.2); Absolute Eosinophils 0.1 10^3/uL (0-0.7); Absolute Immature Granulocytes 0.1 10^3/uL (0-0.05); Absolute Lymphocytes 2.1 10^3/uL (1.2-3.4); Absolute Monocytes 0.5 10^3/uL (0.1-0.6); Absolute Neutrophils 2.4 10^3/uL (1.4-6.5); Hematocrit 25.3 % (37.0-47.0); Hemoglobin 9.4 g/dL (12.0-16.0); Mean Corp Hgb Conc. 37.2 g/dL (33.0-37.0); Mean Corpuscular Hgb 35.3 pg (27.0-31.0); Mean Corpuscular Volume 95.1 fL (81.0-99.0); Mean Platelet Volume 9.2 fL (7.4-10.4); Nucleated Red Blood Cells % 0 %; Platelet Count 199 10^3/uL (130-400); Red Blood Cell Count 2.66 10^6/uL (4.20-5.40); Red Cell Dist. Width 12.7 % (11.5-14.5); White Blood Cell Count 5.1 10^3/uL (4.8-10.8)
[2024-02-27 18:35] LABS: ALT (SGPT) 102 U/L (0-35); AST (SGOT) 114 U/L (14-36); Albumin 4.2 g/dl (3.5-5.0); Alkaline Phosphatase 84 U/L (38-126); Blood Urea Nitrogen 30 mg/dl (7-17); Carbon Dioxide 21 mmol/L (22-30); Chloride 93 mmol/L (98-107); Estimated Creatinine Clearance 39 ml/min; Glucose 108 mg/dl (70-99); Potassium 4.5 mmol/L (3.5-5.1); Sodium 130 mmol/L (135-145); Total Bilirubin 0.4 mg/dl (0.2-1.3); Total Protein 6.7 g/dl (6.3-8.2); eGFR 40.39
[2024-02-27 18:47] LABS: Troponin I < 0.012 ng/ml
--- NOTE | 2024-02-27 18:58 | ED.GENMED ---
History of Present Illness
General
Chief Complaint: Weakness
Time Seen by Provider: 02/27/24 18:57
History of Present Illness
History of Present Illness:
TIME OF INITIAL ENCOUNTER: 7 PM
HPI: Patient came in by ambulance. She had weakness and was found to have blood pressure of 60/40 for EMS. There was never any loss of consciousness or fall.
EXAM:
GENERAL: Well appearing in no distress
HEENT: Moist oral mucosa
CARDIOVASCULAR: No murmurs, normal heart rate, regular rhythm, No chest wall tenderness
PULMONARY: No respiratory distress, breath sounds are clear and equal
ABDOMEN: Soft with no peritoneal signs, no tenderness, empty rectal vault, however I did obtain stool that was on her underwear and it was heme-negative brown stool
NEUROLOGIC: Excellent strength all extremities, no coordination deficits
PSYCHIATRIC: Appropriate mental status, normal insight and judgement
EXTREMITIES: Nontender, no edema, moves all extremities equally
SKIN: No rash, no lesions
NUMBER AND COMPLEXITY OF PROBLEMS ADDRESSED AT THE ENCOUNTER
� Chronic conditions affecting care: High blood pressure, stomach ulcers, diabetes
� Acute Exacerbation and/or Progression of Chronic Illness: This is an acute problem
� Differential Diagnosis includes: Symptomatic anemia, dysrhythmia, iron deficiency anemia, dehydration, RACHEL
AMOUNT AND/OR COMPLEXITY OF DATA TO BE REVIEWED AND ANALYZED
� I performed an independent evaluation of and my interpretation is:
EKG: Sinus 78, normal axis, no acute ST abnormality
CT:
X-rays:
Laboratory Studies: White count 5.1, hemoglobin 9.4, BUN 30, creatinine 1.5, unremarkable troponin
Other:
� Review of other/old records: 2 months ago, the hemoglobin was 11.3 and 3 months ago was 14.0.
� Clinical information was obtained by an independent historian: I spoke to son at bedside
� Prescriptions/Medications Considered but not given:
� Further testing considered but not performed:
RISK OF COMPLICATIONS AND/OR MORBIDITY OR MORTALITY OF PATIENT MANAGEMENT
� Social determinants of health affecting care: Lives at home
� Discussion with other providers: Dr. Burr for admission
� Escalation of care including admission/observation vs risk of discharge considered: Blood pressure for EMS was 60/40. Initial ER BP 86/51 and then most recently 95/64. As patient was markedly hypotensive in the field and
arrived hypotensive, she was given IV fluids and is improved. Do not feel that she needs blood transfusion at this time but I am concerned about the rapid drop in the hemoglobin
ANY OTHER UPDATES:
Phy Exam
Physical Exam
Physical Exam:
See HPI
Course
Orders/Labs/Results
Orders:
Orders
02/27/24 17:11
Electrocardiogram (*1) Urgent
Reason for Study: Vertigo / Dizzy
02/27/24 17:12
EKG- Treatment ONCE
02/27/24 18:00
Complete Blood Count/With Diff Urgent
Comprehensive Metabolic Panel Urgent
Troponin I Urgent
Abnormal Lab Results
02/27/24
18:00
RBC 2.66 L 10^6/uL
(4.20-5.40)
Hgb 9.4 L g/dL
(12.0-16.0)
Hct 25.3 L %
(37.0-47.0)
MCH 35.3 H pg
(27.0-31.0)
MCHC 37.2 H g/dL
(33.0-37.0)
Abs Immat Gran (auto) 0.1 H 10^3/uL
(0-0.05)
Immature Gran % 1.0 H %
(0-0.5)
Monocytes % 9.4 H %
(1.7-9.3)
Sodium 130 L mmol/L
(135-145)
Chloride 93 L mmol/L
(98-107)
Carbon Dioxide 21 L mmol/L
(22-30)
BUN 30 H mg/dl
(7-17)
Creatinine 1.5 H mg/dL
(0.6-1.0)
Glucose 108 H mg/dl
(70-99)
AST 114 H U/L
(14-36)
ALT 102 H U/L
(0-35)
02/27/24 18:00
02/27/24 18:00
Vital Signs
Initial and Last Documented VS:
Initial Vital Signs
Pulse Ox
100
02/27/24 17:10
Last Documented Vital Signs
Temp Pulse Resp BP Pulse Ox
98.1 F 78 14 95/64 100
02/27/24 17:11 02/27/24 18:45 02/27/24 18:45 02/27/24 18:45 02/27/24 18:45
*Critical Care Note
Total Time (30-74mins, 75-104mins- exclusive of procedures): Not Applicable
ED Attending Note
-
Portions of this chart may have been created with voice recognition software.� Occasional wrong word or��sound alike� substitutions may have occurred due to the inherent limitations of voice recognition software.
Discharge Plan
Departure
Prescriptions:
No Action
lisinopril-hydrochlorothiazide 20-12.5 mg tablet
1 tab PO DAILY
omeprazole 20 mg Capsule,Delayed Release(Dr/Ec)
20 mg PO DAILY
Estelle Back and Body 500-32.5 mg Tablet
1 tab PO DAILYPRN PRN (Reason: back pain)
thiamine HCl (vitamin B1) 100 mg Tablet
100 mg PO BID Qty: 20 0RF
quetiapine 25 mg Tablet
25 mg PO DAILY 30 Days Qty: 30 0RF
quetiapine 100 mg Tablet
100 mg PO HS 30 Days Qty: 30 0RF
Referrals:
Johnathon Edwards MD [Family Provider] -
Interventions
Interventions:
*Risk Screen - Suicide Last Done: 02/27/24 17:08
*General Assessment Last Done: 02/27/24 17:08
*Neglect/Abuse Screening Last Done: 02/27/24 17:08
*ED COVID-19 Vaccine History Last Done: 02/27/24 17:08
ED- Cardiac Assessment Last Done: 02/27/24 17:10
ED- Neurological Assessment Last Done: 02/27/24 17:10
ED- Pulmonary Assessment Last Done: 02/27/24 17:10
Discharge Date and Time
Print Language: IRAQI
--- NOTE | 2024-02-27 19:40 | HPS.HSE ---
Family Physician
-
Family Physician: Johnathon Edwards
Chief Complaint
-
Recurrent syncopal episodes
History of Present Illness
This is a 58-year-old female with past medical history of hypertension, anemia, prior peptic ulcer disease who was recently admitted and diagnosed with acute altered mental status changes secondary to medication changes presents to the emergency
department with approximately 4 days of recurrent syncopal episodes.
Patient reports that she has had approximately 2 syncopal episodes a day since Tuesday. She reports a sensation of feeling lightheaded then vision loss and inability to respond. She lowered herself to a seated position and then she feels better and
symptoms improved. However this occurred in the presence of her daughter at work today so EMS was called. She reports that after lowering herself for about 20 minutes she is able to get up again and continue her activity. Patient reports about 1
week of watery diarrhea occurring several times a day. She denies any hematochezia. She denies any melena. She reports occasional nausea but no bloody emesis. Patient denies fevers or chills. She reports no significant p.o. intake for several
days. She denies any rash. She denies any chest pain or palpitations. She denies any shortness of breath. She does report mid scapula pleuritic type chest pain but no cough.
In the emergency department she was initially hypotensive to 60 systolic on arrival. With IV fluids blood pressure is now 95/60, pulse 78. She is afebrile. She is satting 100% on room air. ECG showed normal sinus rhythm at a rate of 78.
Troponin is 0.012. Hemoglobin is 9.4 down from 11.5 few weeks ago. She has no leukocytosis. Sodium is 138 down from 140. Creatinine is up to 1.5 down from 0.8.
Medical History
Past Medical History
Past Medical History: Reports GERD and HTN
Past Surgical History: Reports None
Social History
Tobacco: Non-smoker
Alcohol: None
Drug: None
Personal: Single
Living: With Family
Employment: Employed
Family History
Family History: Not pertinent
Allergies / Home Medications
Allergies reflects when Allergies were last updated in [facility].
Home Medications with original date entered in [facility]
Allergy/Medication List:
Allergies
Allergy/AdvReac Type Severity Reaction Status Date / Time
No Known Allergies Allergy Unverified 12/14/23 17:43
Home Medications
aspirin-caffeine 500 mg-32.5 mg tablet (Estelle Back and Body) 1 tab PO DAILYPRN PRN back pain 12/14/23
lisinopril 20 mg-hydrochlorothiazide 12.5 mg tablet 1 tab PO DAILY Blood Pressure 12/14/23
omeprazole 20 mg capsule,delayed release 20 mg PO DAILY Gastrointestinal Issue 12/14/23
quetiapine 100 mg tablet 100 mg PO HS 30 days #30 tabs 12/17/23
quetiapine 25 mg tablet 25 mg PO DAILY 30 days #30 tabs 12/17/23
thiamine HCl (vitamin B1) 100 mg tablet 100 mg PO DAILY 02/27/24
Review of Systems
-
Constitutional: Reports No Symptoms
EENT: Reports No Symptoms
Respiratory: Reports No Symptoms
Cardiac: Reports No Symptoms
Abdomen/GI: Reports Diarrhea
: Reports No Symptoms
Musculoskeletal: Reports No Symptoms
Skin: Reports No Symptoms
Neurological: Reports Other (recurrent syncope)
Endocrine: Reports No Symptoms
Hematologic/Lymphatic: Reports No Symptoms
Psych: Reports No Symptoms
Physical Exam
Vital Signs
Vital Signs
Temp Pulse Resp BP Pulse Ox
98.1 F 78 14 95/64 100
02/27/24 17:11 02/27/24 18:45 02/27/24 18:45 02/27/24 18:45 02/27/24 18:45
Physical Exam
General: Well Developed, Well Nourished, No Apparent Distress and Comfortable
HEENT: NormoCephalic, Anicteric and Atraumatic
Respiratory: Clear
Cardiac: S1/S2 and Regular Rhythm
Breast: Deferred by me
GI: Soft, Non Tender, Non Distended and Normal Bowel Sounds
Rectal: Hem Negative
Genito-urinary: Deferred by me
Musculoskeletal: No Clubbing, No Cyanosis and No Edema
Skin: Warm
Neuro: AO x 3
Hematologic/Lymphatic: No Lymphadenopathy
Psych: Calm
Laboratory Results
-
02/27/24 18:00
02/27/24 18:00
Laboratory Results
Total Bilirubin 0.4 mg/dl (0.2-1.3) 02/27/24 18:00
AST 114 U/L (14-36) H 02/27/24 18:00
ALT 102 U/L (0-35) H 02/27/24 18:00
Alkaline Phosphatase 84 U/L (38-126) 02/27/24 18:00
Troponin I < 0.012 ng/ml 02/27/24 18:00
Data Reviewed
-
Medical Tests (Nuc Med, Echo, EKG etc): Image Personally Visualized and interpreted
Lab Data: Discussed with Physician
Old Records: Reviewed
Impression/Plan
-
IMPRESSION:
58-year-old with history of about 1 week of diarrhea, and weakness and recurrent syncopal episode found to be hypotensive on arrival in the emergency department with a rapid response to IV fluids.
PLAN:
1. Pre-syncope/Weakness and HTN - Suspect secondary to hypovolemia given elevated BUN/Cr and history of diarrheal fluid losses with low intake. Cannot rule out blood loss entirely but heme negative empty vault and denies h/o melena or
hematochezia. Taking bp meds during diarrheal period
- admit to telemetry
- Continue IV fluids with LR at 125 ml/hr
- hold lisiniprol hctz
- check echo in am
- orthostatic vitals
- check u/a
2. Diarrhea - Patient reports improving but episode noted today in ED
- stool culture and cdiff
- fecal occult blood testing
- check crp for inflammatory diarrhea
- start anti-diarrheal
3. Anemia - No melena or hematochezia. Hgb 9.4 down from 11 despite diarrhea
- stool occult blood
- type and screen
- protonix iv bid for now
- consider gi consult if hgb further trendd down or has occult blood in stool
DVT PPX - SCDs
Code status - Full
[2024-02-27 19:47] LABS: Iron 178 ug/dl (37-170)
[2024-02-27 19:57] LABS: Percent Saturation 83 % (20-50); Total Iron Binding Capacity 212 ug/dl (265-497)
[2024-02-27] MEDS: PROTONIX IV 80 MG IV (20:21)
[2024-02-28] VITALS (37 sets, daily range): BP systolic 90–149; BP diastolic 52–79; PULSE 53–79; O2SAT 100; BMI 27.5
[2024-02-28] MEDS: SEROQUEL 100 MG PO ×2 (00:10→22:08)
[2024-02-28] MEDS: LR 1000 IV ×3 (00:11→16:42)
[2024-02-28 00:32] LABS: Hematocrit 23.4 % (37.0-47.0); Hemoglobin 8.6 g/dL (12.0-16.0)
[2024-02-28 05:51] LABS: Hematocrit 23.2 % (37.0-47.0); Hemoglobin 8.4 g/dL (12.0-16.0); Mean Corp Hgb Conc. 36.2 g/dL (33.0-37.0); Mean Corpuscular Hgb 36.4 pg (27.0-31.0); Mean Corpuscular Volume 100.4 fL (81.0-99.0); Mean Platelet Volume 9.2 fL (7.4-10.4); Platelet Count 181 10^3/uL (130-400); Red Blood Cell Count 2.31 10^6/uL (4.20-5.40); Red Cell Dist. Width 12.5 % (11.5-14.5); White Blood Cell Count 4.7 10^3/uL (4.8-10.8)
[2024-02-28 06:23] LABS: Blood Urea Nitrogen 24 mg/dl (7-17); Calcium 8.9 mg/dl (8.4-10.2); Carbon Dioxide 23 mmol/L (22-30); Chloride 103 mmol/L (98-107); Estimated Creatinine Clearance 49 ml/min; Glucose 87 mg/dl (70-99); Potassium 4.2 mmol/L (3.5-5.1); Sodium 136 mmol/L (135-145)
[2024-02-28] MEDS: PROTONIX IV 40 MG IV ×2 (07:30→19:56)
[2024-02-28] MEDS: SEROQUEL 25 MG PO (07:30)
[2024-02-28] MEDS: VITAMIN B1 100 MG PO (07:30)
[2024-02-28] MEDS: NSS (PRESERVATIVE FREE) 10 ML IV ×2 (07:30→19:56)
--- NOTE | 2024-02-28 07:46 | W.PN.HOSP.TC ---
Today's Communication/Plan
-
see A/P
Assessment / Plan
Assessment / Plan
HPI: 58-year-old female with past medical history of hypertension, anemia, prior peptic ulcer disease who was recently admitted and diagnosed with acute altered mental status changes secondary to medication changes presented to the emergency
department with approximately 4 days of recurrent syncopal episodes.
Patient reports that she has had approximately 2 syncopal episodes a day since Tuesday. She reports a sensation of feeling lightheaded then vision loss and inability to respond. She lowered herself to a seated position and then she feels better and
symptoms improved. However this occurred in the presence of her daughter at work on [employer] so EMS was called. She reports that after lowering herself for about 20 minutes she is able to get up again and continue her activity. Patient reports about 1
week of watery diarrhea occurring several times a day. She denies any hematochezia/melena. She reports occasional nausea but no bloody emesis. Patient denies fevers or chills. She reports no significant p.o. intake for several days.
In the emergency department she was initially hypotensive to 60 systolic on arrival. With IV fluids blood pressure improved. Hemoglobin was 9.4 down from 11.5 few weeks ago. Creatinine is up to 1.5 down from 0.8.
A/P:
# Pre-syncope/generalized weakness/RACHEL/hypotension, likely due to hypovolemia from recent GI loss/diarrhea and low intake
Check C diff, Norovirus, Stool culture
Monitor for further diarrhea episode (improving per pt)
Continue IV fluids with LR at 125 ml/hr
hold SPENT GRAIN DRYER lisinopril-hctz
SCr 1.5 on admission, today 1.2, baseline 0.8
Check echo in am for presyncope
Check orthostatic vitals
# Anemia, likely contributed to generalized weakness
Hgb 9.4 on admission, down to 8.4 today, from baseline 12
Cont protonix iv bid
Check Iron panel, B12, folate level
GI CS
DVT PPX - SCDs
Code status - Full
Anticipated Discharge: > 48 hours
Subjective/Interval History
-
Date of Service: February 28, 2024
Objective Data
-
Labs:
Laboratory Results
02/28/24 02/28/24 02/28/24
00:16 05:35 11:58
WBC 4.7 L
Hgb 8.6 L 8.4 L Pending
Hct 23.4 L 23.2 L Pending
Plt Count 181
Sodium 136
Potassium 4.2
Chloride 103
Carbon Dioxide 23
BUN 24 H
Creatinine 1.2 H
Glucose 87
Calcium 8.9
Vital Signs:
Vital Signs
Temp Pulse Resp BP Pulse Ox
36.4 C 56 14 111/75 99
02/28/24 07:28 02/28/24 07:28 02/28/24 07:28 02/28/24 07:28 02/28/24 07:28
I&O
02/27/24 02/28/24 02/29/24
06:59 06:59 06:59
Intake Total 1000 / 1000
Balance 1000 / 1000
Review of Systems
-
All other systems: Reviewed and negative
Constitutional: Reports Weakness
Physical Exam
-
General: Well Developed, Well Nourished, No Apparent Distress, Comfortable and Conversant; Negative Respiratory Distress
HEENT: Normocephalic, Atraumatic, Nose Appears Normal and Ears Appear Normal; Negative Oxygen
Respiratory: Clear to Auscultation and Non Labored Respirations; Negative Accessory Resp Muscle Use
Cardiac: Regular Rhythm and S1/S2
GI: Soft, Nontender, Nondistended and Normal Bowel Sounds
Skin: Warm and Dry
Neuro: Awake, Alert, Oriented and AO x 3
Psych: Calm and Intact Judgement/Insight
Data Reviewed
-
Labs: Labs Reviewed by me and Discussed with Patient
[2024-02-28 09:39] LABS: Vitamin B12 313 pg/ml (239-931)
--- NOTE | 2024-02-28 12:53 | CON.GI ---
Addendum entered and electronically signed by Evelia Tillman Do, MD 02/28/24 17:15:
I saw and examined the patient.
The EMBEDDED SYSTEMS ENGINEER's note was reviewed and I agree with the note.
Comment: Corrie is a 58yo W with h/o HTN and GERD who was admitted for fatigue and syncope. She also reports chronic diarrhea 'most of my life.' GI consulted for anemia. She denies blood in stools and states that it is yellow. She is not on AC
or chronic NSAIDs. She reports remote h/o PUD. She uses OTC nexium. She denies odynophagia, dysphagia, nausea/vomiting or abd pain. Vitals reviewed. Exam tangential speech, NTTP, NABS. Labs reviewed anemia with elevated iron. Low normal vit
B12.. EGD/colon at [facility] in 2021
Impression
- Fatigue and syncope
- Anemia with elevated iron levels
low normal vitamin B12 level
- Elevated LFTs
- Chronic diarrhea
- Remote h/o PUD
- GERD
- HTN
- Tobacco use
- ETOH use
Recommendations
- Check FOBT stools
- Serial H/H
- Vit B12 1000mg IM injection x1 today
- Obtain records of EGD/colon from [facility] 2021
- C/w PPI
- Hepatitis serologies
- Abd US
- Regular diet
Will follow with you
Original Note:
Consultation
-
Date/Time Consultation Requested: 02/28/24 0750
Date/Time Consultation Performed: 02/28/24 1200
Requesting Provider: Dr. Kenny
Performing Provider: Dr. Ohara/NARAYAN Bui
Reason for Consultation: diarrhea
Medical History
Chief Complaint / HPI
Chief Complaint: syncope, weakness, diarrhea
History of Present Illness:
58-year-old female with past medical history of hypertension, GERD, peptic ulcer disease, colon polyps, alcohol abuse, tobacco abuse who presents to the emergency room with 1 week history of intermittent episodes of syncope, diarrhea, weakness,
lethargy. We are asked to evaluate for diarrhea. Patient tells me that this started 1 week ago where she was trying to cook some 'sauce' and that she went to bend over and nearly passed out. She states that she had significant fatigue and felt
sick starting last week. She states she stopped smoking and drinking and that is when she knows she was 'really sick'. She had multiple episodes of diarrhea at least 5 times a day that was brown and watery. She states that she tried to have soups
but she just could not keep her energy up. This continued on where she would have episodes where she did feel like she was going to pass out. Eventually she had an episode with loss of consciousness which precipitated her arrival to the emergency
department. She states prior to this she had no issues with her bowel movements. She denies any fevers, chills, nausea, vomiting, melena, hematochezia, dysphagia or odynophagia. She denies any early satiety or unintentional weight loss. She has
had loose bowel movement since she has been here. C. difficile toxin negative, antigen positive. Cultures pending. She has a prior history of gastroesophageal reflux dating back over 20 years. She states that she has history of peptic ulcer
disease diagnosed by Dr. Edmund Fallon that resolved during her treatment with him. She has been followed by hog grader at [place] since that time. She continues on Nexium [id number]. She has no breakthrough reflux as long as she
continues to take her Nexium. Her last endoscopy and colonoscopy were approximately 2 years ago. She states that on her endoscopy she was diagnosed with 'GERD and a yellow ball that they biopsied'. Her colonoscopy showed a 'polyp and she was told
she had to come back in 5 years'. The patient denies any new medications, recent travel, sick contacts or spoiled food. 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
Past Medical History
Past Medical History: GERD, HTN, Psychiatric (Recent admission in December 2023 with auditory and visual hallucinations) and Other (Prior peptic ulcer disease, colon polyps,)
Past Surgical History:
Social History
Tobacco: Smoker
Alcohol: Daily (At least 3 white claws daily)
Drug: None
Living: With Family
Employment: Employed
Family History
Family History: Other (Denies any family history gastrointestinal malignancy or IBD)
Allergies / Home Medications
Allergy/AdvReac Type Severity Reaction Status Date / Time
No Known Allergies Allergy Unverified 12/14/23 17:43
�Medication �Instructions �Recorded
aspirin-caffeine 500 mg-32.5 mg 1 tab PO DAILYPRN PRN back pain 12/14/23
tablet ([facility])
lisinopril 20 1 tab PO DAILY Blood Pressure 12/14/23
mg-hydrochlorothiazide 12.5 mg
tablet
omeprazole 20 mg capsule,delayed 20 mg PO DAILY Gastrointestinal 12/14/23
release Issue
quetiapine 100 mg tablet 100 mg PO HS 30 days #30 tabs 12/17/23
quetiapine 25 mg tablet 25 mg PO DAILY 30 days #30 tabs 12/17/23
thiamine HCl (vitamin B1) 100 mg 100 mg PO DAILY 02/27/24
tablet
Review of Systems
-
All other systems: A 12 pt ROS was Negative except as stated above in HPI
Vital Signs
Temp Pulse Resp BP Pulse Ox
97.6 F 56 14 111/75 99
02/28/24 07:28 02/28/24 07:28 02/28/24 07:28 02/28/24 07:28 02/28/24 07:28
Physical Exam
Exam
General: No Apparent Distress
HEENT: Anicteric
Respiratory: Clear
Cardiac: Regular Rhythm
GI: Soft, Non Tender, Non Distended and Normal Bowel Sounds
Musculoskeletal: No Edema
Skin: Warm and Dry
Neuro: AO x 3
Psych: Calm
Results
WBC 4.7 10^3/uL (4.8-10.8) L 02/28/24 05:35
Hgb Cancelled 02/28/24 11:58
Hct Cancelled 02/28/24 11:58
MCV 100.4 fL (81.0-99.0) H 02/28/24 05:35
Plt Count 181 10^3/uL (130-400) 02/28/24 05:35
Absolute Neuts (auto) 2.4 10^3/uL (1.4-6.5) 02/27/24 18:00
Sodium 136 mmol/L (135-145) 02/28/24 05:35
Potassium 4.2 mmol/L (3.5-5.1) 02/28/24 05:35
Chloride 103 mmol/L (98-107) 02/28/24 05:35
Carbon Dioxide 23 mmol/L (22-30) 02/28/24 05:35
BUN 24 mg/dl (7-17) H 02/28/24 05:35
Creatinine 1.2 mg/dL (0.6-1.0) H 02/28/24 05:35
Calcium 8.9 mg/dl (8.4-10.2) 02/28/24 05:35
Total Bilirubin 0.4 mg/dl (0.2-1.3) 02/27/24 18:00
AST 114 U/L (14-36) H 02/27/24 18:00
ALT 102 U/L (0-35) H 02/27/24 18:00
Alkaline Phosphatase 84 U/L (38-126) 02/27/24 18:00
Diagnostic Image Results:
None this admission
Prior GI Procedures:
EGD: Patient states performed at [facility] approximately 2 years ago. Was told that she had 'GERD and a yellow ball was biopsied in her stomach'
Colonoscopy: Patient states performed at [facility] approximately 2 years ago. Was told that she had 'polyps' was told to have repeat in 5 years.
Assessment / Plan
-
58-year-old female with past medical history of hypertension, GERD, peptic ulcer disease, colon polyps, alcohol abuse, tobacco abuse who presents to the emergency room with 1 week history of intermittent episodes of syncope, diarrhea, weakness,
lethargy. We are asked to evaluate for diarrhea. Patient tells me that this started 1 week ago where she was trying to cook some 'sauce' and that she went to bend over and nearly passed out. She states that she had significant fatigue and felt
sick starting last week. She states she stopped smoking and drinking and that is when she knows she was 'really sick'. She had multiple episodes of diarrhea at least 5 times a day that was brown and watery. She states that she tried to have soups
but she just could not keep her energy up. This continued on where she would have episodes where she did feel like she was going to pass out. Eventually she had an episode with loss of consciousness which precipitated her arrival to the emergency
department. She states prior to this she had no issues with her bowel movements. She denies any fevers, chills, nausea, vomiting, melena, hematochezia, dysphagia or odynophagia. She has had loose bowel movement since she has been here. C.
difficile toxin negative, antigen positive. Norovirus negative. Cultures pending. WBC 4.7, hemoglobin 8.4, hematocrit 23.2, platelets 181, MCV 100.4, MCH 36.4, sodium 136, potassium 4.2, chloride 103, CO2 23, BUN 24, creatinine 1.2, glucose 87,
iron 178, TIBC 212, percent saturation 83, ferritin 1250. Total bilirubin 0.4, AST 114, ALT 102, alk phos 84, B12 313, folate 6.0. When patient presented her blood pressure was 60/40. With IV fluids this is improved to 111/75. She also had
hyponatremia which has improved.
Impression:
Diarrhea
Syncope/presyncope
Anemia--> macrocytic with elevated iron, normal/low B12 and folate.
Elevated LFTs-> chronic
Alcohol abuse
GERD with prior hx PUD-> uses [facility] prn which is ASA 500 mg
CDiff toxin negative/Antigen positive
Plan:
-Continue Pantoprazole
-Await stool cultures, add O&P/giardia/crypto (Patient lives [place] farm with animals)
-Check Hepatitis Panel
-Check US Abd
-No abd pain currently, cannot have CT with IV contrast secondary to renal function. If with pain would scan.
-Recommend follow up for LFT workup as outpatient. Patient has GI that she follows with. Including HFE testing.
-Avoid NSAIDS
-Watch for ETOH withdrawl
-Discussed avoid ETOH
-If no other source for diarrhea to consider treating antigen positive CDiff.
-If diarrhea does not improve to consider flex sig
-
-
Thank you for consultation and allowing me to participate in the patient's care. Please call the water control station engineer GI physician during the after hours with any questions or concerns.
[2024-02-28] MEDS: CYANOCOBALAMIN 1000 MCG IM (16:39)
--- NOTE | 2024-02-28 18:17 | PTCARENOTE ---
pt aaox3 states no pain or sob walked from stretcher to bed. states last bm was 1300 still more watery than normal. does not feel dizzy now. ivf running as ordered.
[2024-02-28 21:14] LABS: Glucose - Point of Care 140 mg/dl (70-99)
[2024-02-29] MEDS: LR 1000 IV (00:22)
[2024-02-29 03:05] VITALS: BP 99/57
[2024-02-29 07:05] VITALS: BP 127/71
[2024-02-29 07:14] LABS: Hematocrit 25.5 % (37.0-47.0); Hemoglobin 8.7 g/dL (12.0-16.0); Mean Corp Hgb Conc. 34.1 g/dL (33.0-37.0); Mean Corpuscular Hgb 34.8 pg (27.0-31.0); Mean Platelet Volume 9.2 fL (7.4-10.4); Platelet Count 228 10^3/uL (130-400); Red Cell Dist. Width 12.9 % (11.5-14.5); White Blood Cell Count 4.6 10^3/uL (4.8-10.8)
[2024-02-29 08:14] LABS: Blood Urea Nitrogen 15 mg/dl (7-17); Calcium 9.4 mg/dl (8.4-10.2); Carbon Dioxide 28 mmol/L (22-30); Chloride 104 mmol/L (98-107); Estimated Creatinine Clearance 53 ml/min; Glucose 88 mg/dl (70-99); Magnesium 1.3 mg/dl (1.6-2.3); Potassium 4.5 mmol/L (3.5-5.1); Sodium 141 mmol/L (135-145); eGFR 58.61
[2024-02-29] MEDS: VITAMIN B1 100 MG PO (08:50)
[2024-02-29] MEDS: VITAMIN B-12 1000 MCG PO (08:50)
[2024-02-29] MEDS: SEROQUEL 25 MG PO (08:50)
[2024-02-29] MEDS: NSS (PRESERVATIVE FREE) 10 ML IV (08:52)
[2024-02-29] MEDS: PROTONIX IV 40 MG IV (08:53)
--- NOTE | 2024-02-29 09:13 | PN.CDI ---
CDI
- -
CDI:
Physician Documentation Request
Admit Date: 02/27/24 20:40
Dear Doctor Zoya,
Patient admitted for hypotension.
Laboratory Tests
02/27/24
18:00
Sodium 130 L
Based on the above, could you clarify in the progress notes, the appropriate diagnosis, if significant, that supports the above abnormalities and additional evaluation, monitoring and/or treatment rendered:
Hyponatremia
Abnormal lab value insignificant
Other
Use of terms such as suspected, likely, concern for, or probable (associated with a specific diagnosis that is being evaluated, monitored, or treated as if it exists) are acceptable and can be coded in the inpatient setting, when documented at the
time of discharge.
Thank you,
Noreen Bell RN, BSN
CDI Specialist
Available via [employer] text
Please use your independent medical judgment in providing your response.
--- NOTE | 2024-02-29 09:14 | W.PN.GI.CBS2 ---
Addendum entered and electronically signed by Evelia Tillman Do, MD 02/29/24 15:16:
I saw and examined the patient.
The ELECTRICIAN DECK's note was reviewed and I agree with the note.
Comment: She denies abd pain. No nausea/vomiting tolerating diet without issues. Vitals stable exam NTTP. Labs reviewed Abd US without acute abnormalities. Recommend to heme test stools. Ok from GI perspective for hosp d/c today. She will FU
with her GI at [facility]. All questions answered
Original Note:
Today's Communication / Plan
-
-diarrhea with some improvement, no further syncope-- also reports recent back to chest pain
- Check FOBT stools-- not tested last PM
-norvirus neg, c-diff ag + tox neg , giardia/cypto neg, stool cx pending
- hbg 9.4--8.6--8.4--8.7
- Vit B12 313 s/p 1000mg IM injection x1 and cont oral dosing -- cont rx per hospitalist as pt report chronic B12 supplement but low levels
- await records of EGD/colon from [facility] 2021
- C/w PPI
- Hepatitis serologies pending
-add repeat LFT's and lipase with report of back to chest pain
- Abd US -pending
- Regular diet
-NSAID avoidance
-ETOH abstinence -- monitor for withdrawal
Assessment / Plan
-
Comment: Corrie is a 58yo W with h/o HTN and GERD who was admitted for fatigue and syncope. She also reports chronic diarrhea 'most of my life.' GI consulted for anemia. She denies blood in stools and states that it is yellow. She is not on AC
or chronic NSAIDs. She reports remote h/o PUD. She uses OTC nexium. She denies odynophagia, dysphagia, nausea/vomiting or abd pain. Labs reviewed anemia with elevated iron. Low normal vit B12.. EGD/colon at [facility] in 2021
Impression
- Fatigue and syncope
-back pain radiation to chest
- Anemia with elevated iron levels
low normal vitamin B12 level
-c-diff ag + tox neg
- Elevated LFTs-- reports hx fatty liver/hepatomegaly with prior LFT elevation
- Chronic diarrhea
- Remote h/o PUD
- GERD
- HTN
- Tobacco use
-hx fatty liver
- ETOH use
-hx sagrario
Recommendations
-diarrhea with some improvement, no further syncope-- also reports recent back to chest pain
- Check FOBT stools-- not tested last PM
-norvirus neg, c-diff ag + tox neg , giardia/cypto neg, stool cx pending
- hbg 9.4--8.6--8.4--8.7
- Vit B12 313 s/p 1000mg IM injection x1 and cont oral dosing -- cont rx per hospitalist as pt report chronic B12 supplement but low levels
- await records of EGD/colon from [facility] 2021
- C/w PPI
- Hepatitis serologies pending
-add repeat LFT's and lipase with report of back to chest pain
- Abd US -pending
- Regular diet
-NSAID avoidance
-ETOH abstinence -- monitor for withdrawal
Subjective
Subjective
Date of Service: February 29, 2024
02/27 richmond mucoid stool on regular diet, pt reports some recent back pain with radiation to chest prior to admission
Objective
Data Reviewed
Laboratory Data:
Laboratory Results
02/29/24 05:57
02/29/24 05:57
Laboratory Results
Magnesium 1.3 mg/dl (1.6-2.3) L 02/29/24 05:57
Total Bilirubin 0.4 mg/dl (0.2-1.3) 02/27/24 18:00
AST 114 U/L (14-36) H 02/27/24 18:00
ALT 102 U/L (0-35) H 02/27/24 18:00
Alkaline Phosphatase 84 U/L (38-126) 02/27/24 18:00
Vital Signs and I&O:
Vital Signs
Temp Pulse Resp BP Pulse Ox
97.8 F 55 16 127/71 98
02/29/24 07:05 02/29/24 07:05 02/29/24 07:05 02/29/24 07:05 02/29/24 07:05
I&O
02/28/24 02/29/24 03/01/24
06:59 06:59 06:59
Intake Total 1000 / 1000 720 / 720
Balance 1000 / 1000 720 / 720
Physical Exam
Physical Exam
HEENT: Anicteric and Moist mucous membranes
Cardiology: Normal Sinus Rhythm
Pulmonary: Clear
GI: Soft, Non Distended and Non Tender
Extremities: No Edema
Neuro: Non Focal
[2024-02-29 10:32] LABS: ALT (SGPT) 77 U/L (0-35); AST (SGOT) 78 U/L (14-36); Albumin 3.5 g/dl (3.5-5.0); Alkaline Phosphatase 73 U/L (38-126); Direct Bilirubin 0.1 mg/dl (0.0-0.4); Lipase 340 U/L (23-300); Total Bilirubin 0.5 mg/dl (0.2-1.3); Total Protein 5.7 g/dl (6.3-8.2)
--- NOTE | 2024-02-29 11:25 | W.PN.HOSP.TC ---
Addendum entered and electronically signed by Anisa Kenny MD 02/29/24 15:13:
# Hyponatremia
Addendum entered and electronically signed by Anisa Kenny MD 02/29/24 13:26:
total DC time 40 min
Original Note:
Today's Communication/Plan
-
see A/P
Assessment / Plan
Assessment / Plan
HPI: 58-year-old female with past medical history of hypertension, anemia, prior peptic ulcer disease who was recently admitted and diagnosed with acute altered mental status changes secondary to medication changes presented to the emergency
department with approximately 4 days of recurrent syncopal episodes.
Patient reports that she has had approximately 2 syncopal episodes a day since Tuesday. She reports a sensation of feeling lightheaded then vision loss and inability to respond. She lowered herself to a seated position and then she feels better and
symptoms improved. However this occurred in the presence of her daughter at work on [employer] so EMS was called. She reports that after lowering herself for about 20 minutes she is able to get up again and continue her activity. Patient reports about 1
week of watery diarrhea occurring several times a day. She denies any hematochezia/melena. She reports occasional nausea but no bloody emesis. Patient denies fevers or chills. She reports no significant p.o. intake for several days.
In the emergency department she was initially hypotensive to 60 systolic on arrival. With IV fluids blood pressure improved. Hemoglobin was 9.4 down from 11.5 few weeks ago. Creatinine is up to 1.5 down from 0.8.
A/P:
# Pre-syncope/generalized weakness/RACHEL/hypotension, likely due to hypovolemia from recent GI loss/diarrhea and low intake
C diff Ag positive but toxin negative, since pt is clinically symptomatic, would treat for acute C diff colitis with PO Vanco x10 days
Norovirus neg, pending stool culture
Monitor for further diarrhea episode (resolved per pt)
hold GENERAL ADJUSTER lisinopril-hctz for now until further directed by PCP
SCr 1.5 on admission, today 1.1, baseline 0.8
echo unrevealing: EF 70%. Normal diastolic function. No significant valvular disease. Estimated pulmonary artery pressure of 22 mmHg
orthostatic vitals acceptable
PT OT: no skilled needed
# Anemia, likely contributed to generalized weakness
Hgb 8.7 today, baseline ~12
Iron panel noted ACD,
Low B12 noted (at 300), started supplement
Appreciate GI input, no plan for inpt endoscopy, pt can follow up with outpt GI after discharge
# Elevated LFT, improving
Check Abd US
Follow hepatitis panel
DVT PPX - SCDs
Code status - Full
PT OT: no skilled needed
DW GI
Anticipated Discharge: Today
Subjective/Interval History
-
Date of Service: February 29, 2024
Objective Data
-
Labs:
Laboratory Results
02/29/24
05:57
WBC 4.6 L
Hgb 8.7 L
Hct 25.5 L
Plt Count 228 D
Sodium 141
Potassium 4.5
Chloride 104
Carbon Dioxide 28
BUN 15
Creatinine 1.1 H
Glucose 88
Calcium 9.4
Total Bilirubin 0.5
AST 78 H
ALT 77 H
Alkaline Phosphatase 73
Vital Signs:
Vital Signs
Temp Pulse Resp BP Pulse Ox
36.6 C 55 16 127/71 98
02/29/24 07:05 02/29/24 07:05 02/29/24 07:05 02/29/24 07:05 02/29/24 07:05
I&O
02/28/24 02/29/24 03/01/24
06:59 06:59 06:59
Intake Total 1000 / 1000 720 / 720
Balance 1000 / 1000 720 / 720
Review of Systems
-
All other systems: Reviewed and negative
Physical Exam
-
General: Well Developed, Well Nourished, No Apparent Distress, Comfortable and Conversant; Negative Respiratory Distress
HEENT: Normocephalic, Atraumatic, Nose Appears Normal and Ears Appear Normal; Negative Oxygen
Respiratory: Clear to Auscultation and Non Labored Respirations; Negative Accessory Resp Muscle Use
Cardiac: Regular Rhythm and S1/S2
GI: Soft, Nontender, Nondistended and Normal Bowel Sounds
Skin: Warm and Dry
Neuro: Awake, Alert, Oriented and AO x 3
Psych: Calm and Intact Judgement/Insight
Data Reviewed
-
Labs: Labs Reviewed by me and Discussed with Patient
[2024-02-29 13:00] VITALS: BP 123/75; BP 123/77; BP 125/77; PULSE 71; PULSE 73; PULSE 76
[2024-02-29] MEDS: FIRVANQ 125 MG PO ×2 (13:03→18:32)
--- NOTE | 2024-02-29 13:11 | W.DCSUMMARY ---
Discharge Summary
Discharge Data
Date of Admission: 02/27/24
Date of Discharge: 02/29/24
-
Pending Results: No
Hospital Course
Principal Diagnosis:
Pre-syncope/generalized weakness/acute kidney injury (RACHEL)/hypotension, likely due to hypovolemia from recent GI loss/diarrhea and low intake
Suspect acute C. difficile colitis
Transaminitis which is possibly reactive, improved
Low vitamin B12 level at 300
Chronic Diagnoses:�
Hypertension
Anemia
prior peptic ulcer disease (prior EGD and C scope 2 years ago at [facility]SH)
Consultations:�
Gastroenterology
Procedures:�
None
Clinical course:�
This is a 58-year-old female with past medical history as stated above, who presented with syncopal episodes at home. She reported sensation of feeling lightheaded and dizzy, and she would lower herself in a seated position. She also endorsed to
watery diarrhea with poor p.o. intake.
Problem 1:
Pre-syncope/generalized weakness/RACHEL/hypotension, likely due to hypovolemia from GI loss/diarrhea and low intake.
Of note, her C diff antigen was positive but toxin negative, but since she was clinically symptomatic, would treat for acute C diff colitis with oral Vanco x10 days.
Her Norovirus was negative, and stool culture was still pending at the time of discharge.
Her prior to admission lisinopril-HCTZ was held with RACHEL and normotension (was hypotension on admission).
She can follow-up with her PCP as to when to resume lisinopril-HCTZ.
The patient received IV fluid during her hospital stay, and her serum creatinine improved from 1.5 to 1.1 (baseline at 0.8).
An echocardiogram was obtained for her presyncope workup, which was unrevealing: EF 70%. Normal diastolic function. No significant valvular disease. Estimated pulmonary artery pressure of 22 mmHg.
Her orthostatic vital sign was acceptable following IV fluid resuscitation.
She was seen by PT OT, and she does not qualify for assisted facility.
Problem 2:
Anemia, likely contributed to generalized weakness.
Her hemoglobin was at 8.7 on the day of discharge, baseline at around 12.
Her iron panel noted anemia of chronic disease.
Her B12 was noted to be low at 300, and she was started with B12 supplementation.
Per GI, there is no plan for inpatient endoscopy evaluation.
The patient can follow-up with outpatient PCP/GI for further anemia workup.
Problem 3:
Elevated LFT, improved, suspect reactive.
Her abdominal ultrasound was unrevealing: Normal post cholecystectomy abdomen.
Hepatitis panel was obtained, and she can follow-up these results with the PCP outpatient.
She can check follow-up LFT with the PCP outpatient.
As for the rest of her medical problems, they were stable during her hospital stay.
Discharge Plan
-
Patient Disposition: Home (Routine Discharge)
Discharge Diagnosis/Procedures: Pre-syncope/generalized weakness/Acute kidney injury/hypotension, likely due to hypovolemia from diarrhea and low intake;
Diarrhea likely due to C diff colitis (Antigen positive but toxin negative);
Elevated LFT;
Anemia of chronic disease;
Low B12 level (at 300)
Condition: Good
Diet: As tolerated
Activity: As tolerated
Driving Restrictions: As prior to admission
Blood Work: CBC and CMP in 1 week, result to PCP
Activity Restrictions/Additional Instructions:
follow hepatitis panel with your PCP (hepatitis panel was checked for your elevated LFT)
Referrals:
Johnathon Edwards MD [Family Provider] - in less than 1 week
Additional Discharge Medication Instructions: hold lisinopril-hctz until further directed by PCP.
Take vancomycin for 10 days for the C diff colitis.
Take B12 supplement and check repeat level in 1-3 months with your PCP
Prescriptions:
New
cyanocobalamin (vitamin B-12) 1,000 mcg Tablet
1,000 mcg PO DAILY Qty: 30 0RF
vancomycin 125 mg capsule
125 mg PO QID 10 Days Qty: 40 0RF
Continued
omeprazole 20 mg Capsule,Delayed Release(Dr/Ec)
20 mg PO DAILY
Estelle Back and Body 500-32.5 mg Tablet
1 tab PO DAILYPRN PRN (Reason: back pain)
quetiapine 25 mg Tablet
25 mg PO DAILY 30 Days Qty: 30 0RF
quetiapine 100 mg Tablet
100 mg PO HS 30 Days Qty: 30 0RF
thiamine HCl (vitamin B1) 100 mg tablet
100 mg PO DAILY
Held
lisinopril-hydrochlorothiazide 20-12.5 mg tablet
1 tab PO DAILY
Hold Instructions: Resume on 03/07/24. until further directed by PCP
Discharge Orders:
Discharge Patient (As Directed); Ordered 02/29/24
Ordered By: Anisa Kenny
Discharge Date and Time
Print Language: ERITREAN
[2024-02-29 15:00] VITALS: BP 122/74
[2024-02-29] MEDS: MAGNESIUM SULFATE 100 IV (15:24)
--- NOTE | 2024-02-29 16:33 | CM ---
met with patient at bedside.she lives with her in house with 3 greg,her bed and bath is on the first lfoor,she amb i and is I with her adl.[facility] and [facility].
patient has never had a vn or been to ip rehab.she has no dme.
patient adm with recurrent syncope,vit b12 low-given supplement,cdiff + but toxin negative,echo fine,no plan for ip endoscopy,stable for dc home with no needs.
[2024-03-02 00:40] LABS: Hepatitis B Surface Antigen Negative (Negative)
[2024-03-02 00:57] LABS: Hepatitis B Surface Antibody Negative; Hepatitis C Antibody Negative (Negative)
[2024-03-02 09:03] LABS: Hepatitis A IgM Antibody Negative (Negative); Hepatitis B Core Ab, IgM Negative (Negative)
== END 2024-02-29 18:45 | disposition home or self-care (01) | DRG 683 ==
LOC: 2 NORTH 20:40
PROVIDERS: Nurse Practitioner; Student in an Organized Health Care Education/Training Program; ADMITTING PHYSICIAN Internal Medicine; ATTENDING PHYSICIAN Internal Medicine; CONSULT PHYSICIAN Internal Medicine Gastroenterology; EMERGENCY PHYSICIAN Emergency Medicine; FAMILY PHYSICIAN Family Medicine
DX: N17.9 Acute kidney failure, unspecified (principal); E87.1 Hypo-osmolality and hyponatremia; K21.9 Gastro-esophageal reflux disease without esophagitis; I10 Essential (primary) hypertension
CPT/HCPCS: 76700; 80048; 80053; 82248; 82607; 82728; 82746; 82962; 83540; 83550; 83690; 83735; 84484; 85014; 85018; 85025; 85027; 86705; 86706; 86709; 86803; 86850; 86900; 86901; 87045; 87046; 87324; 87328; 87329; 87340; 87427; 87449; 87798; 93005; 93306; 96374; 99285